=== PATIENT | male | born 1980 | race Caucasian/White ===

== ENCOUNTER 2020-01-09 18:23 | Inpatient (IN) ==
--- NOTE | 2020-01-09 19:46 | Emergency Department Note ---
Impression & Plan Dysphagia, Abdominal pain ED Provider Note NAME: WAYNE [id number] ANURADHA AGE: 39 SEX: M : 1980 ARRIVES VIA: Walk-In INFORMANT: Patient, ED PROVIDER(S): Joe Becker MD Chief Complaint: Hematemesis, abdominal pain HPI: Patient does present with the above complaints. The patient reports that he has been incarcerated for approximately 10 days and during this time the patient was admitted to [facility] where the patient did have hematemesis and an associated bowel obstruction. The patient states that he was forced to sign out AMA and was subsequently [facility] currently at [facility] and then was brought back in for his continued symptoms. The patient denies any trauma to the area but does state he has difficulty with secretions and cannot keep anything down. The patient states that he did have an endoscopy completed at the other hospital but was not told of any source of his hematemesis. The patient does not take any blood thinning medications. The patient denies alcohol or tobacco use. Patient states that he was picked up due to not showing up for a court date. ROS: See HPI for pertinent positives and negatives. A total of 10 systems were reviewed and otherwise negative. Past medical history: See below Surgical history: See below Social history: See below Physical Exam: GENERAL: Wearing a mask. NAD, non-toxic. EYE EXAM: Normal conjunctiva. PERRL, no anisocoria and EOM's grossly intact w/o pain. NECK: Supple, no nuchal rigidity, no adenopathy, non-tender. No signs of meningismus. LUNGS: Clear to auscultation. Normal chest wall mechanics. HEART: NSR, no MRG. ABDOMEN: Abdomen soft, mild upper abdominal pain without peritonitis normo- active bowel sounds, no masses, no rebound or guarding. BACK: No CVA TTP. SKIN: No rashes and no bruising. UPPER EXTREMITIES: Upper extremities are grossly normal. LOWER EXTREMITIES: Grossly normal, no edema. NEURO EXAM: A&O x3, cranial nerves II-XII grossly intact, normal speech, moves all 4 extremities on command w/o issue. Differential diagnoses: Diverticulosis, AVM, coagulopathy, colitis, inflammatory bowel disease, malignancy, Fara-Johnson tear, esophagitis, peptic ulcer dise ase, variceal bleed, gastritis, epistaxis, fissure, hemorrhoids, as well as other pathologies. Course: Patient was seen and evaluated the bedside. Full history physical exam was performed. EKG: Sinus bradycardia, rate of 47, normal intervals, normal axis, T wave inversion in V2 and V3 as well as in lead III. Imaging Studies: Radiology results as stated below per my review in the radiologist's interpretation: CT abdomen and pelvis with contrast: Fatty liver pole. No acute intra-abdominal or inflammatory process. No bowel dilatation. Unremarkable appendix. Liquid stool in the rectum. 5 gallstones. No abdominal aortic aneurysm. Chase Hill MD Cardiac monitoring: An order was placed for continuous cardiac monitoring. The monitor shows a rate of 48 with sinus bradycardia rhythm. MDM: Patient was seen due to concern for possible upper GI bleed with hematemesis blood work was obtained along with a CT of the abdomen pelvis. Patient does have a normal white count H&H and platelet count. Kidney function is unremarkable. Patient does have elevated sodium which could be related to some dehydration although the patient's BUN to creatinine is just above 20. AST is borderline elevated with rest of the LFTs fairly unremarkable. Patient CT abdomen pelvis does not show any acute findings no evidence of any bowel obstruction. I did order the patient by mouth medications with the patient refused to take his he has some discomfort. Given this potential inability to swallow and I do not have a prior EGD report did speak the on-call hospitalist Dr. Agustín MD the patient was admitted to the [facility] service. Past Med/Surg History Medical History Bowel obstruction Social History Smoking Status: Never smoker Preferred Language: Khmer Feels Safe at Home: Yes Allergies Allergies Allergy/AdvReac Type Severity Reaction Status Date / Time Penicillins Allergy Unknown unknown Verified 01/09/20 20:49 BEE STINGS Allergy Unknown pt Uncoded 01/09/20 20:49 Home Meds Home Medications Medication Instructions Recorded Confirmed No Known Home Medications 01/09/20 01/09/20 Results & Data (ED) Vital Signs Vital Signs - 24 hr 01/09/20 18:37 01/09/20 20:52 01/09/20 22:14 Temperature 37.3 C Temperature Source Oral Pulse Rate 48 L Pulse Rate [Right Finger] 60 46 L Respiratory Rate 18 20 19 Respiratory Effort / Characteristics Non-Labored Spontaneous Respiratory Depth Normal Respiratory Pattern Regular Blood Pressure 131/73 Blood Pressure [Left Arm] 129/87 136/72 Blood Pressure Mean 92 Blood Pressure Mean [Left Arm] 101 93 Blood Pressure Position Sitting Pulse Oximetry 96 98 97 Oxygen Delivery Method Room Air Sepsis Recent Fever Within 48 Hours No Sepsis New/Unexplained Change in Mental Status N/A Sepsis Action Taken by Nursing No Action Required 01/09/20 23:39 Temperature Temperature Source Pulse Rate 46 L Pulse Rate [Right Finger] Respiratory Rate 19 Respiratory Effort / Characteristics Respiratory Depth Respiratory Pattern Blood Pressure 152/71 H Blood Pressure [Left Arm] Blood Pressure Mean Blood Pressure Mean [Left Arm] Blood Pressure Position Pulse Oximetry 97 Oxygen Delivery Method Room Air Sepsis Recent Fever Within 48 Hours Sepsis New/Unexplained Change in Mental Status Sepsis Action Taken by Intermediate Medications Current Medication List: was personally reviewed by me Laboratory Data Attestation: I reviewed the patient's lab results. Result diagrams: 01/09/20 20:16 01/09/20 20:16 Lab Results 01/09/20 01/09/20 01/09/20 Range/Units 19:54 20:16 20:16 WBC 9.14 (4.8-10.8) K/uL RBC 4.99 (4.7-6.1) M/uL Hgb 15.0 (14.0-18.0) g/dL Hct 43.2 (42-52) % MCV 86.6 (80-100) fL MCH 30.1 (25-34) pg MCHC 34.7 (32-36) g/dL RDW Std Deviation 39.5 (36.4-46.3) fL RDW Coeff of [place] 12.5 (11.5-14.5) % Plt Count 235 (130-400) K/uL MPV 11.3 H (7.4-10.4) fL Immature Gran % (Auto) 0.3 % Neut % (Auto) 64.4 % Lymph % (Auto) 27.6 % [place] % (Auto) 7.3 % Eos % (Auto) 0.2 % Baso % (Auto) 0.2 % Neut # (Auto) 5.88 (1.4-6.5) K/uL Lymph # (Auto) 2.52 (1.2-3.4) K/uL [place] # (Auto) 0.67 H (0.11-0.59) K/uL Eos # (Auto) 0.02 (0-0.5) K/uL Baso # (Auto) 0.02 (0-0.2) K/uL Immature Gran # (Auto) 0.03 H (0.00-0.02) K/uL PT 12.6 H (9.0-12.0) Seconds INR 1.2 H (0.9-1.1) APTT 25.3 (21.0-31.0) Seconds PTT Ratio 0.9 Sodium (136-145) mmol/L Potassium (3.5-5.1) mmol/L Chloride (98-107) mmol/L Carbon Dioxide (21-32) mmol/L Anion Gap (3-11) BUN (7-18) mg/dl Creatinine (0.6-1.4) mg/dl Est Cr Clr Drug Dosing Est GFR ( Amer) Est GFR (Non-Af Amer) BUN/Creatinine Ratio (10-20) Glucose (70-99) mg/dl Calcium (8.5-10.1) mg/dl Total Bilirubin (0.2-1) mg/dl AST (15-37) U/L ALT (12-78) U/L Alkaline Phosphatase (45-117) U/L Total Protein (6.4-8.2) gm/dl Albumin (3.4-5.0) gm/dl Globulin (2.5-4.0) gm/dl Albumin/Globulin Ratio (0.9-2) Blood Type B Negative Antibody Screen NEGATIVE 01/09/20 Range/Units 20:16 WBC (4.8-10.8) K/uL RBC (4.7-6.1) M/uL Hgb (14.0-18.0) g/dL Hct (42-52) % MCV (80-100) fL MCH (25-34) pg MCHC (32-36) g/dL RDW Std Deviation (36.4-46.3) fL RDW Coeff of [place] (11.5-14.5) % Plt Count (130-400) K/uL MPV (7.4-10.4) fL Immature Gran % (Auto) % Neut % (Auto) % Lymph % (Auto) % [place] % (Auto) % Eos % (Auto) % Baso % (Auto) % Neut # (Auto) (1.4-6.5) K/uL Lymph # (Auto) (1.2-3.4) K/uL [place] # (Auto) (0.11-0.59) K/uL Eos # (Auto) (0-0.5) K/uL Baso # (Auto) (0-0.2) K/uL Immature Gran # (Auto) (0.00-0.02) K/uL PT (9.0-12.0) Seconds INR (0.9-1.1) APTT (21.0-31.0) Seconds PTT Ratio Sodium 148 H (136-145) mmol/L Potassium 3.5 (3.5-5.1) mmol/L Chloride 116 H (98-107) mmol/L Carbon Dioxide 23 (21-32) mmol/L Anion Gap 9.0 (3-11) BUN 16 (7-18) mg/dl Creatinine 0.80 (0.6-1.4) mg/dl Est Cr Clr Drug Dosing Not Reportable Est GFR ( Amer) 128.6 Est GFR (Non-Af Amer) 111.0 BUN/Creatinine Ratio 20.1 H (10-20) Glucose 89 (70-99) mg/dl Calcium 9.2 (8.5-10.1) mg/dl Total Bilirubin 0.6 (0.2-1) mg/dl AST 44 H (15-37) U/L ALT 58 (12-78) U/L Alkaline Phosphatase 63 (45-117) U/L Total Protein 7.5 (6.4-8.2) gm/dl Albumin 3.3 L (3.4-5.0) gm/dl Globulin 4.2 H (2.5-4.0) gm/dl Albumin/Globulin Ratio 0.8 L (0.9-2) Blood Type Antibody Screen Administered Medications Discontinued Medications Ioversol (Ioversol 100ml) 90 ml IV ONCE ONE Stop: 01/09/20 21:12 Last Admin: 01/09/20 21:12 Dose: 90 ml Documented by: [id number] Ondansetron HCl (Ondansetron 4 Mg Od Tab) 4 mg PO NOW STA Stop: 01/09/20 21:36 Last Admin: 01/09/20 21:43 Dose: Not Given Documented by: [id number] Oxycodone HCl (Oxycodone Hcl Ir 5 Mg Tab (Immediate Release)) 5 mg PO NOW STA Stop: 01/09/20 21:36 Last Admin: 01/09/20 21:43 Dose: Not Given Documented by: [id number] Discharge Plan Visit Data Chief Complaint: GI Bleed Stated Complaint: SOB, COUGHING UP BLOOD, ABD PAIN, THROAT PAIN ED Provider: Joe Becker Discharge Problem: Dysphagia, Abdominal pain Discharge Instructions Interventions: ED Discharge Assessment Last Done: 01/09/20 23:39 Forms Stand Alone Forms: [employer] Prescriptions Prescriptions: No Action No Known Home Medications RF: 0 Referrals Referrals: Spike Wilder MD [Primary Care Provider] - Discharge Problem: Dysphagia Qualifiers: Dysphagia type: unspecified Qualified Code(s): R13.10 - Dysphagia, unspecified Abdominal pain Qualifiers: Abdominal location: generalized Qualified Code(s): R10.84 - Generalized abdominal pain
[2020-01-09 20:33] LABS: Basophils # (auto) 0.02 K/uL (0-0.2); Basophils % (auto) 0.2 %; Eosinophils # (auto) 0.02 K/uL (0-0.5); Eosinophils % (auto) 0.2 %; Hematocrit (blood only) 43.2 % (42-52); Immature Granulocytes # (auto) 0.03 K/uL (0.00-0.02); Immature Granulocytes % (auto) 0.3 %; Lymphocytes # (auto) 2.52 K/uL (1.2-3.4); Lymphocytes % (auto) 27.6 %; Mean Corpuscular Hemoglobin 30.1 pg (25-34); Mean Corpuscular Hgb Conc 34.7 g/dL (32-36); Mean Corpuscular Volume 86.6 fL (80-100); Mean Platelet Volume 11.3 fL (7.4-10.4); Monocytes # (auto) 0.67 K/uL (0.11-0.59); Monocytes % (auto) 7.3 %; Neutrophils # (auto) 5.88 K/uL (1.4-6.5); Neutrophils % (auto) 64.4 %; Platelet Count 235 K/uL (130-400); RDW Coefficient of Variation 12.5 % (11.5-14.5); RDW Standard Deviation 39.5 fL (36.4-46.3); Red Blood Count 4.99 M/uL (4.7-6.1); White Blood Count 9.14 K/uL (4.8-10.8)
[2020-01-09 20:51] LABS: INR 1.2 (0.9-1.1); Partial Thromboplastin Ratio 0.9; Partial Thromboplastin Time 25.3 Seconds (21.0-31.0); Prothrombin Time 12.6 Seconds (9.0-12.0)
[2020-01-09 20:54] LABS: Alanine Aminotransferase 58 U/L (12-78); Albumin Level 3.3 gm/dl (3.4-5.0); Aspartate Aminotransferase 44 U/L (15-37); BUN Creatinine Ratio 20.1 (10-20); Blood Urea Nitrogen 16 mg/dl (7-18); Calcium 9.2 mg/dl (8.5-10.1); Carbon Dioxide 23 mmol/L (21-32); Chloride 116 mmol/L (98-107); Est GFR (African American) 128.6; Glucose 89 mg/dl (70-99); Potassium 3.5 mmol/L (3.5-5.1); Sodium 148 mmol/L (136-145)
[2020-01-09 20:57] LABS: Albumin Globulin Ratio 0.8 (0.9-2); Alkaline Phosphatase 63 U/L (45-117); Bilirubin,Total 0.6 mg/dl (0.2-1); Globulin 4.2 gm/dl (2.5-4.0); Total Protein 7.5 gm/dl (6.4-8.2)
[2020-01-09] MEDS ORDERED: IOVERSOL 100ml IV ONE (21:11)
[2020-01-09] MEDS ORDERED: ONDANSETRON 4 MG OD TAB PO STA (21:35)
[2020-01-09] MEDS ORDERED: oxyCODONE HCL IR 5 MG TAB (IMMEDIATE RELEASE) PO STA (21:35)
[2020-01-09] MEDS ORDERED: ACETAMINOPHEN 325 MG TAB PO PRN (23:59)
[2020-01-09] MEDS ORDERED: NITROGLYCERIN SL 0.4 MG/TAB TAB SL PRN (23:59)
[2020-01-09] MEDS ORDERED: ONDANSETRON INJ 2 MG/ML 2 ML VIAL IV PRN (23:59)
[2020-01-09] MEDS ORDERED: MoRPHine SULFATE 4 MG/ML 1 ML CARP\\VIAL IV STA (23:59)
--- NOTE | 2020-01-10 00:44 | History and Physical Report ---
DATE OF ADMISSION: 01/09/2020 CHIEF COMPLAINT: Questionable hematemesis and dysphagia. HISTORY OF PRESENT ILLNESS: This is a 39-year-old male with past medical history significant for tobacco use disorder, who comes with hematemesis and dysphagia. The patient is admitted to skilled nursing since 12/31/2019. He says symptoms started around 12/31/2019 or 01/01/2020. He is saying he is not able to eat anything. Whatever he puts in his mouth is coming out, he could not even drink water, he is throwing up, and he says he also had a couple of days of hematemesis on 01/03/2020 and 01/04/2020 and he was taken to the hospital, looks like [facility] where the patient had a bowel obstruction and was s/p scope. The patient says they are waiting for the biopsies. Patient says he was forced to sign out AMA today. Seems he was also transferred to a different [facility] as per the ER and was brought in here for similar symptoms. The patient says he is still the same, that he could not eat anything and has abdominal pain in the epigastric region. He says his throat is sore because of the tubes. No loss of sense of smell or taste. Denies any fever, chills. No headache, no blurred vision, no earache, no runny nose. He has cough since 12/30/2019 or 12/31/2019, bringing up some whitish phlegm. No shortness of breath, no chest pain. He is urinating when he gets fluids and he had a some small amount of diarrhea in the ER today and says stools are black. No swelling in the legs, no rash. ALLERGIES: BEE VENOM, PENICILLINS. PAST MEDICAL HISTORY: As mentioned above. PAST SURGICAL HISTORY: No past surgical history on file. MEDICATIONS: None. FAMILY HISTORY: Significant for father had heart disorder. SOCIAL HISTORY: Smoked half pack a day for 5 years. Snuffs tobacco 1 can a day as per the EPIC. No alcohol use, no drug use as per the EPIC. REVIEW OF SYSTEMS: As per HPI. Rest of the review of systems negative. PHYSICAL EXAMINATION: GENERAL: The patient is of moderate built, not in acute distress. VITAL SIGNS: Temperature 37.3, pulse 46, respiratory rate 19, blood pressure 136/72, oxygen 97% on room air. HEENT: Head atraumatic. Pupils are equal, round, and reactive to light. Oral mucosa moist. NECK: No JVD, no neck masses seen. CARDIOVASCULAR: S1, S2 heard, regular rate and rhythm, no murmur, no gallop. RESPIRATORY SYSTEM: Normal AP diameter. No accessory muscle use. No wheezing, no crackles. ABDOMEN: Soft, bowel sounds present. Mild epigastric tenderness present, no guarding, no rigidity. No distention. CENTRAL NERVOUS SYSTEM: Cranial nerves II-XII grossly intact, nonfocal. EXTREMITIES: No edema, no erythema. LABORATORY DATA: WBC 9.1, hemoglobin 15, hematocrit 43.2, platelets 235. PT 12.7, INR 1.2, APTT 25.3. Sodium 148, potassium 3.5, chloride 116, CO2 of 23, BUN 16, creatinine 0.8, serum glucose 89, calcium 9.2, total bilirubin 0.6, AST 44, ALT 58, alkaline phosphatase 63. IMAGING DATA: CT of abdomen and pelvis preliminary report shows fatty liver, no acute intra-abdominal inflammatory process. No bowel dilatation. Unremarkable appendix. Liquid stool in the rectum. No calcified gallstones. No abdominal aortic aneurysm. EKG: Sinus bradycardia at the rate of 47, incomplete right bundle branch block seen. ASSESSMENT AND PLAN: This is a 39-year-old male who presents with ongoing dysphagia to liquids and solids and also hematemesis. 1. Ongoing dysphagia to liquids and solids since 12/31/2019 or 01/01/2020 and also had an episode of hematemesis for couple of days . The patient was at an outside hospital where EGD was done. He says the biopsies are pending, but still he says he was forced to sign out AMA and still has ongoing symptoms. Labs were fine. His CAT scan of the abdomen and pelvis was unremarkable on the preliminary report. We will follow the final report. We will place him on IV Protonix b.i.d., IV fluids. Consult GI in a.m. for further recommendations. 2. Deep venous thrombosis prophylaxis, sequential compression devices. DISPOSITION: Admit to med/tele. Expect to discharge back to skilled nursing when stable. [facility]
[2020-01-10] MEDS: D5W AND 1/2NSS + 20MEQ KCL 20 MEQ/1,000 ML BAG IV SCH ×3 (00:46→16:10)
--- NOTE | 2020-01-10 07:18 | CT Scan Report ---
CT OF THE ABDOMEN AND PELVIS WITH CONTRAST CLINICAL HISTORY: hematemesis, h/o bowel obstruction COMPARISON STUDY: None. TECHNIQUE: Following IV administration of 90 mL of Optiray-320, axial images of the abdomen and pelvi s were obtained from the lung bases to the proximal femurs. Images were reviewed in the axial, sagitt al, and coronal planes. IV contrast was administered without complication. Automated exposure contro l was utilized for the study. A dose lowering technique was utilized adhering to the principles of A AMINTA. CT DOSE: 627.12 mGy.cm FINDINGS: Lung bases are unremarkable. No pneumatosis, free air or portal venous gas is present. Ther e is probable fatty infiltration of the liver or there is a possible small hiatal hernia. The spleen, adrenal glands, kidneys and pancreas are normal. There is no biliary or pancreatic ductal dilatation . No hydronephrosis. No ureteral calculi are present. There is no evidence for a bowel obstruction. T here is no lymphadenopathy. Major vasculature is patent. No biliary or pancreatic ductal dilatation i s noted. There is no peripancreatic or pericholecystic infiltration. The appendix is normal. IMPRESSION: 1. No acute process within the abdomen or pelvis. No bowel obstruction. Normal appendix. 2. Fatty infiltration of the liver. ACT 112: Negative or not required by law. Electronically signed by: Keyur Cobian M.D. 01/10/2020 7:17 AM
[2020-01-10] MEDS: PANTOprazole 40 MG in SYRINGE 0 ML IV SCH ×2 (07:38→20:12)
[2020-01-10] MEDS: ACETAMINOPHEN 1,000 MG/100 ML VIAL IV PRN ×2 (08:08→18:58)
--- NOTE | 2020-01-10 08:35 | Gastrointestinal Consultation ---
Date of Consultation January 10, 2020 Assessment & Plan (1) Dysphagia: (2) Abdominal pain: 39 year old male with history of tobacco use who presents with report of abdominal pain, nausea/vomiting w/ resultant hematemesis and solids/liquid dysphagia. He was in [facility] where he was admitted w/ a self reported bowel obstruction and underwent EGD for hematemesis. He is unsure what these reports showed. Came to [place] ED today w/ report of ongoing inability to tolerate PO intake, solids/liquids dysphagia and hematemesis that last occurred 24 hours ago. He is awake, alert and oriented, stable vital signs w/ normal HGB w/o BUN elevation. - Records were requested - Can keep NPO - Stat COVID in event EGD is needed - IV PPI BID - Antiemetics PRN - Analgesia PRN - Would recommend to avoid NSAIDs and AC at this time - Trend HGB - Monitor and document all GI output - Transfuse PRN per primary service Will follow and await records. Thank you for allowing us to participate in the care of this patient. Please call with any acute changes, questions or concerns. Please see addendum below with additional recommendation from my supervising physician. Supervising Physician Co-Signing Physician Notes I have seen and examined the patient and discussed the management with MILLICENT Lacy. GI consult for ? hematemesis, abd pain 39 yo male prisoner, smoker, denies recent nsaid use, admitted through the ER for reported hematemesis abd pain, has constipation. Recent workup thru [place] including egd with no results (attempts to get results faxed stat to us early this morning but results yet to arrive). No further hematemesis or vomiting since admission. Stable hgb, no bun rise. Not on blood thinners. Covid test pending Will likely repeat EGD pending results of covid today or tomorrow. Would keep NPO for now. Would hydrate with IV LR. History of Present Illness Reason for Consultation: hematemesis, dysphagia Requesting Physician: Zuly Attending Physician: Enmanuel Caruso MD History of Present Illness 39 year old male with history of tobacco use disorder, recently incarcerated, who presents through the ED for evaluation of dysphagia, hematemesis. Pt was seen and evaluated, chart reviewed. Notes he developed severe generalized abdominal pain about 10 days ago. This was associated with severe nausea/vomiting. Emesis to start was bilious and clear. Suggests after 1-2 episodes this became adelso blood. Notes that he vomited for about 48 hours- this was just adelso blood. No coffee ground appearing emesis. Suggests after emesis, abd pain resolved. He had tried PO intake at this time however, and notes that all PO intake gets stuck. Feels sticking sensation in his esophagus. He went to [place] ED. Records are not available but he tells me imaging at that time was concerning for obstruction and an NG tube was placed. He then tells me because of his hematemesis he underwent EGD. He is not sure what the EGD showed. He was apparently discharged after EGD although he reports he was never able to tolerate PO intake. He presents to [place] now w/ ongoing symptoms. He tells me no vomiting x 24 hours. Last episodes of hematemsis was over 24 hours ago. No BM in about 3/4 days while he was admitted at [facility]. No weight loss, fever, chills, CP, SOB. Denies any NSAIDs Denies ETOH Ongoing tobacco use Denies IV/IN drug use Denies any foreign body ingestion CTAP 01/10/20: No acute process within the abdomen or pelvis. No bowel obstruction. Normal appendix. Fatty infiltration of the liver CTAP 01/06/20: waiting report EGD 01/06/20: waiting report Family history of GI malignancy: none Family history of IBD: grandmother w/ crohns Allergies Allergy/AdvReac Type Severity Reaction Status Date / Time Penicillins Allergy Unknown unknown Verified 01/09/20 20:49 BEE STINGS Allergy Unknown pt Uncoded 01/09/20 20:49 Home Medications Home Medications Medication Instructions Recorded Confirmed Type No Known Home Medications 01/09/20 01/09/20 History Patient History Medical History Bowel obstruction Social History Smoking Status: Former smoker Second Hand Exposure: No; Do You Dip or Chew Tobacco: No; Tobacco Cessation Education Requested by Patient: No Hx Alcohol Use: No Hx Substance Use: No Preferred Language: Belarusian Communication Ability: Effective Chief Wellness Officer Required: No Beliefs That Will Affect Care: None Current Living Situation Comment: Pt is currently incarcerate. Other Information That Helps Us Care for You: No Feels Safe at Home: Yes Safety Concerns: Feels Safe At This Time Assistive Devices: None Review of Systems Constitutional: no fever, no chills and no fatigue Respiratory: no cough, no dyspnea and no wheezing Cardiovascular: no chest pain, no dyspnea on exertion and no palpitations Gastrointestinal: + abdominal pain, + nausea, + vomiting, + hematemesis and + dysphagia Physical Exam Constitutional: well developed and well nourished; no acute distress and not ill appearing Neck: trachea midline Respiratory: normal respiratory effort Cardiovascular: Rate/Rhythm: regular rate Gastrointestinal (Abdomen): Inspection/Auscultation: normal bowel sounds Percussion/Palpation: + abdomen tender and abdomen soft; no guarding and abdomen not rigid Skin: no rashes, warm and dry Results & Data ([facility]) Vital Signs (Past 12 Hours) Vital Signs Temp Pulse Pulse Resp BP BP Pulse Ox 01/10/20 07:29 36.8 C 45 L 18 131/75 96 01/10/20 04:00 36.9 C 52 L 18 130/66 96 01/10/20 00:11 48 L 01/09/20 23:48 37.3 C 50 L 18 136/82 98 01/09/20 23:39 46 L 19 152/71 H 97 01/09/20 22:14 46 L 19 136/72 97 01/09/20 20:52 60 20 129/87 98 Laboratory Results 01/09/20 01/09/20 01/09/20 Range/Units 20:16 20:16 20:16 WBC 9.14 (4.8-10.8) K/uL RBC 4.99 (4.7-6.1) M/uL Hgb 15.0 (14.0-18.0) g/dL Hct 43.2 (42-52) % MCV 86.6 (80-100) fL MCH 30.1 (25-34) pg MCHC 34.7 (32-36) g/dL RDW Std Deviation 39.5 (36.4-46.3) fL RDW Coeff of [place] 12.5 (11.5-14.5) % Plt Count 235 (130-400) K/uL MPV 11.3 H (7.4-10.4) fL Immature Gran % (Auto) 0.3 % Neut % (Auto) 64.4 % Lymph % (Auto) 27.6 % [place] % (Auto) 7.3 % Eos % (Auto) 0.2 % Baso % (Auto) 0.2 % Neut # (Auto) 5.88 (1.4-6.5) K/uL Lymph # (Auto) 2.52 (1.2-3.4) K/uL [place] # (Auto) 0.67 H (0.11-0.59) K/uL Eos # (Auto) 0.02 (0-0.5) K/uL Baso # (Auto) 0.02 (0-0.2) K/uL Immature Gran # (Auto) 0.03 H (0.00-0.02) K/uL PT 12.6 H (9.0-12.0) Seconds INR 1.2 H (0.9-1.1) APTT 25.3 (21.0-31.0) Seconds PTT Ratio 0.9 Sodium 148 H (136-145) mmol/L Potassium 3.5 (3.5-5.1) mmol/L Chloride 116 H (98-107) mmol/L Carbon Dioxide 23 (21-32) mmol/L Anion Gap 9.0 (3-11) BUN 16 (7-18) mg/dl Creatinine 0.80 (0.6-1.4) mg/dl Est Cr Clr Drug Dosing Not Reportable Est GFR ( Amer) 128.6 Est GFR (Non-Af Amer) 111.0 BUN/Creatinine Ratio 20.1 H (10-20) Glucose 89 (70-99) mg/dl Calcium 9.2 (8.5-10.1) mg/dl Total Bilirubin 0.6 (0.2-1) mg/dl AST 44 H (15-37) U/L ALT 58 (12-78) U/L Alkaline Phosphatase 63 (45-117) U/L Total Protein 7.5 (6.4-8.2) gm/dl Albumin 3.3 L (3.4-5.0) gm/dl Globulin 4.2 H (2.5-4.0) gm/dl Albumin/Globulin Ratio 0.8 L (0.9-2) Blood Type Antibody Screen 01/09/20 Range/Units 19:54 WBC (4.8-10.8) K/uL RBC (4.7-6.1) M/uL Hgb (14.0-18.0) g/dL Hct (42-52) % MCV (80-100) fL MCH (25-34) pg MCHC (32-36) g/dL RDW Std Deviation (36.4-46.3) fL RDW Coeff of [place] (11.5-14.5) % Plt Count (130-400) K/uL MPV (7.4-10.4) fL Immature Gran % (Auto) % Neut % (Auto) % Lymph % (Auto) % [place] % (Auto) % Eos % (Auto) % Baso % (Auto) % Neut # (Auto) (1.4-6.5) K/uL Lymph # (Auto) (1.2-3.4) K/uL [place] # (Auto) (0.11-0.59) K/uL Eos # (Auto) (0-0.5) K/uL Baso # (Auto) (0-0.2) K/uL Immature Gran # (Auto) (0.00-0.02) K/uL PT (9.0-12.0) Seconds INR (0.9-1.1) APTT (21.0-31.0) Seconds PTT Ratio Sodium (136-145) mmol/L Potassium (3.5-5.1) mmol/L Chloride (98-107) mmol/L Carbon Dioxide (21-32) mmol/L Anion Gap (3-11) BUN (7-18) mg/dl Creatinine (0.6-1.4) mg/dl Est Cr Clr Drug Dosing Est GFR ( Amer) Est GFR (Non-Af Amer) BUN/Creatinine Ratio (10-20) Glucose (70-99) mg/dl Calcium (8.5-10.1) mg/dl Total Bilirubin (0.2-1) mg/dl AST (15-37) U/L ALT (12-78) U/L Alkaline Phosphatase (45-117) U/L Total Protein (6.4-8.2) gm/dl Albumin (3.4-5.0) gm/dl Globulin (2.5-4.0) gm/dl Albumin/Globulin Ratio (0.9-2) Blood Type B Negative Antibody Screen NEGATIVE (1) Dysphagia Dysphagia type: unspecified Qualified Code(s): R13.10 - Dysphagia, unspecified (2) Abdominal pain Abdominal location: generalized Qualified Code(s): R10.84 - Generalized abdominal pain
--- NOTE | 2020-01-10 10:49 | XRay Report ---
XR chest 1V portable HISTORY: 39 years-old Male cough acute cough COMPARISON: CT abdomen and pelvis 01/09/2020 TECHNIQUE: Portable AP view of the chest FINDINGS: Cardiomediastinal and hilar silhouettes are within normal limits. No pneumothorax, pleural effusion, airspace consolidation or overt pulmonary edema. Bones of the chest appear grossly intact. IMPRESSION: No acute process. ACT 112: Negative or not required by law. The above report was generated using voice recognition software. It may contain grammatical, syntax o r spelling errors. Electronically signed by: Manuel Wooten M.D. 01/10/2020 10:48 AM
--- NOTE | 2020-01-10 11:15 | Anesthesiology Consultation ---
Date of Service January 10, 2020 Assessment & Plan Chart Review Chart Review: Acceptable Risk for Surgery and Patient NOT seen in Pre Admission Testing Consults Requested none History Surgery Operation Date: 01/10/20 17:00 Proposed Procedures p Esophagogastroduodenoscopy Dr. Winter Max M.D. Height/Weight Height: 5 ft 9 in Weight: 93 kg Allergies Allergy/AdvReac Type Severity Reaction Status Date / Time Penicillins Allergy Unknown unknown Verified 01/09/20 20:49 BEE STINGS Allergy Unknown pt Uncoded 01/09/20 20:49 Medications Home Medications Medication Instructions Recorded Confirmed Last Taken No Known Home Medications 01/09/20 01/09/20 Unknown Active Medications Generic Name Dose Route Start Last Admin Trade Name Freq PRN Reason Stop Dose Admin Potassium Chloride/Dextrose/Sod Cl 20 meq in 1,000 mls @ 125 mls/hr 01/09/20 23:59 01/10/20 07:39 D5w And 1/2nss + 20meq Kcl IV 02/08/20 23:58 125 mls/hr .Q8H ALISSON Administration Pantoprazole Sodium 40 mg/ 10 mls @ 5 mls/min 01/10/20 09:00 01/10/20 07:38 Syringe IV 02/09/20 08:59 5 mls/min BID ALISSON Administration Acetaminophen 1,000 mg in 100 mls @ 400 mls/hr 01/10/20 07:45 01/10/20 08:29 Ofirmev IV 01/13/20 07:44 Infused Q8H PRN Infusion pain Past Medical History Medical History Bowel obstruction Exercise / Class Metabolic Activity II 4-5 Yardwork/Stairs/Walk up hill Social History Smoking Status: Former smoker tobacco type: cigarettes Do You Dip or Chew Tobacco: No Hx Alcohol Use: No Hx Substance Use: No Physical Exam Vital Signs Last Vital Signs Temp 37.2 C 01/10/20 11:29 Pulse 48 L 01/10/20 11:29 Resp 18 01/10/20 11:29 BP 135/72 01/10/20 11:29 Pulse Ox 97 01/10/20 11:29 Testing Laboratory Results 01/09/20 20:16 01/09/20 20:16 PT 12.6 Seconds (9.0-12.0) H 01/09/20 20:16 INR 1.2 (0.9-1.1) H 01/09/20 20:16 APTT 25.3 Seconds (21.0-31.0) 01/09/20 20:16 Blood Type B Negative 01/09/20 19:54 Antibody Screen NEGATIVE 01/09/20 19:54 Electrocardiogram Date: 01/10/20 Findings: + SB @ (47) Sinus bradycardia Incomplete right bundle branch block T wave abnormality, consider anterior ischemia Abnormal ECG No previous ECGs available Chest X-Ray Date: 01/09/20 XR chest 1V portable HISTORY: 39 years-old Male cough acute cough COMPARISON: CT abdomen and pelvis 01/09/2020 TECHNIQUE: Portable AP view of the chest FINDINGS: Cardiomediastinal and hilar silhouettes are within normal limits. No pneumothorax, pleural effusion, airspace consolidation or overt pulmonary edema. Bones of the chest appear grossly intact. IMPRESSION: No acute process. Other Testing 01/09/2020: CT OF THE ABDOMEN AND PELVIS WITH CONTRAST CLINICAL HISTORY: hematemesis, h/o bowel obstruction COMPARISON STUDY: None. TECHNIQUE: Following IV administration of 90 mL of Optiray-320, axial images of the abdomen and pelvis were obtained from the lung bases to the proximal femurs. Images were reviewed in the axial, sagittal, and coronal planes. IV contrast was administered without complication. Automated exposure control was utilized for the study. A dose lowering technique was utilized adhering to the principles of ALARA. CT DOSE: 627.12 mGy.cm FINDINGS: Lung bases are unremarkable. No pneumatosis, free air or portal venous gas is present. There is probable fatty infiltration of the liver or there is a possible small hiatal hernia. The spleen, adrenal glands, kidneys and pancreas are normal. There is no biliary or pancreatic ductal dilatation. No hydronephrosis. No ureteral calculi are present. There is no evidence for a bowel obstruction. There is no lymphadenopathy. Major vasculature is patent. No biliary or pancreatic ductal dilatation is noted. There is no peripancreatic or pericholecystic infiltration. The appendix is normal. IMPRESSION: 1. No acute process within the abdomen or pelvis. No bowel obstruction. Normal appendix. 2. Fatty infiltration of the liver.
[2020-01-10] MEDS ORDERED: LIDOCAINE HCL 2% 2 ML VIAL/AMP(20MG/ML) INFIL ONE ×2 (11:22→11:58)
[2020-01-10] MEDS ORDERED: MIDAZOLAM HCL 1 MG/ML 2ML VIAL ONE (11:22)
[2020-01-10] MEDS ORDERED: PROPOFOL IV EMULSION 10 MG/ML 20 ML VIAL IV ONE (11:22)
[2020-01-10] MEDS ORDERED: ONDANSETRON INJ 2 MG/ML 2 ML VIAL ONE (11:22)
[2020-01-10] MEDS ORDERED: GLYCOPYRROLATE 0.2 MG/ML VIAL ONE (11:33)
--- NOTE | 2020-01-10 11:56 | GI REPORT ---
Patient Name: Hira Olivares Procedure Date: 01/10/2020 11:46 AM Date of : 1980 Admit Type: Inpatient Age: 39 Gender: Male Attending MD: Naz Max M.d. Procedure: Upper GI endoscopy Providers: Naz Max M.d. [facility] Indications: Abdominal pain and odynophagia Medicines: Propofol per Anesthesia, Lidocaine, Robinol Complications: No immediate complications. Estimated Blood Loss: Estimated blood loss: none. Procedure: Pre-Anesthesia Assessment: - Patient identification and proposed procedure were verified prior to the procedure by the physician, the nurse and the anesthesiologist. The procedure was verified in the procedure room. - Prior to the procedure, a History and Physical was performed, and patient medications, allergies and sensitivities were reviewed. The patient's tolerance of previous anesthesia was reviewed. - The risks and benefits of the procedure and the sedation options and risks were discussed with the patient. All questions were answered and informed consent was obtained. After obtaining informed consent, the endoscope was passed under direct vision. Throughout the procedure, the patient's blood pressure, pulse, and oxygen saturations were monitored continuously. The Endoscope was introduced through the mouth, and advanced to the second part of duodenum. The upper GI endoscopy was accomplished without difficulty. The patient tolerated the procedure well. Findings: Moderately severe esophagitis with out bleeding was found with a whitish appearance throughout his esophagus likely from esophageal candidiasis. Localized area of white clean based erosion without bleeding was found in the gastric antrum. Biopsies were taken from the stomach with a cold forceps for Helicobacter pylori testing. The pathology specimen was placed into Bottle B. The entire examined stomach was normal. The duodenal bulb and second portion of the duodenum were normal. Biopsies for histology were taken with a cold forceps for evaluation of celiac disease and histology. The pathology specimen was placed into Bottle A. Verification of patient identification for the specimen was done by the physician and nurse using the patient's name and medical record number. Impression: - Moderately severe candidiasis esophagitis throughout the entire esophagitis.. - Erythematous mucosa in the antrum. Biopsied. - Normal stomach. - Normal duodenal bulb and second portion of the duodenum. Biopsied. Recommendation: - Await pathology results. - Return to the floor when ready.- - Treat for esophageal candidiasis with Diflucan. - Also treat with IV PPI, transition to oral BID ppi for next 6-8 weeks. Naz Max M.D. Naz Max M.d. 01/10/2020 11:56:12 AM This report has been signed electronically. Note Initiated On: 01/10/2020 11:46 AM Number of Addenda: 0 I attest to the content of the Intraoperative Record and orders documented therein, exceptions below {[id number]}
--- NOTE | 2020-01-10 11:56 | Communication Note ---
Date of Service: January 10, 2020 S/P EGD suggestive of quincy esophagitis, bx pending. Would continue IV PPI BID. Start Fluconazole x 14 days (400 mg x 1 dose then 200 mg thereafter). Can trial clear liquids. As he tolerates PO please transition from IV PPI to PO PPI BID x 1 month. GI to sign off. Please recall as needed
--- NOTE | 2020-01-10 13:39 | Anesthesiology Progress Note ---
Date of Service January 10, 2020 Anesthesia Post Procedure Vital Signs Vital Signs: Temp Pulse Pulse Resp BP BP Pulse Ox 01/10/20 12:24 92 H 18 151/79 H 95 01/10/20 12:09 95 H 18 147/94 H 98 01/10/20 11:54 87 18 96/58 L 97 01/10/20 11:29 37.2 C 48 L 18 135/72 97 01/10/20 11:27 37.0 C 45 L 18 124/76 96 01/10/20 07:29 36.8 C 45 L 18 131/75 96 01/10/20 04:00 36.9 C 52 L 18 130/66 96 01/10/20 00:11 48 L 01/09/20 23:48 37.3 C 50 L 18 136/82 98 01/09/20 23:39 46 L 19 152/71 H 97 01/09/20 22:14 46 L 19 136/72 97 01/09/20 20:52 60 20 129/87 98 01/09/20 18:37 37.3 C 48 L 18 131/73 96 Pain Intensity Abdomen: Pain Intensity: 0 Transfer of Care Handoff Completed per policy Notes Mental Status: alert / awake / arousable and participated in evaluation Patient Amnestic to Procedure: Yes Nausea / Vomiting: adequately controlled Pain: adequately controlled Airway Patency, RR, SpO2: stable & adequate BP & HR: stable & adequate Hydration State: stable & adequate Anesthetic Complications: no major complications apparent and Pt Satisfied with anesthetic care
[2020-01-10] MEDS ORDERED: LORazepam 0.5 MG/1 ML VIAL IV PRN (19:34)
[2020-01-10] MEDS: MoRPHine SULFATE 2 MG/ML CARP IV PRN (20:11)
[2020-01-10] MEDS: FLUCONAZOLE 200 MG/100 ML BAG IV SCH (20:20)
--- NOTE | 2020-01-10 22:28 | Hospitalist Progress Note ---
Date of Service January 10, 2020 Assessment & Plan (1) Abdominal pain: Presented with abdominal pain, nausea, vomiting (reported hematemesis), dysphagia. LFT's essentially normal. No acute findings on CT of abdomen & pelvis. Receiving IV pantoprazole. GI consulted. (2) Dysphagia: As noted above. (3) DVT prophylaxis: SCD's ordered. (4) Discharge planning issues: Anticipated return to [facility] under care of their medical team. Admission and Anticipated Discharge Date Admission Date: January 09, 2020 Subjective Recheck for GI symptoms. Patient seen in their room around 1020. Persistent nausea. No emesis today. + epigastric pain. Congested cough. No fever. Physical Exam Constitutional: no acute distress Eyes: + anicteric sclerae Respiratory: no respiratory distress Auscultation: lungs clear to auscultation bilaterally Cardiovascular: Rate/Rhythm: regular rate and regular rhythm Vessels: no JVD Extremities: no calf tenderness and no edema Gastrointestinal (Abdomen): normal bowel sounds, soft, nontender, no hepatosplenomegaly Skin: no rashes, warm and dry Psychiatric: Orientation: alert and oriented x 3 Results & Data Results & Data ([facility]) Vital Signs (Past 12 Hours) Vital Signs Temp Pulse Pulse Resp BP Pulse Ox 01/10/20 19:50 37.4 C 75 18 123/67 97 01/10/20 15:41 183/101 H 01/10/20 15:00 37.2 C 76 18 178/102 H 95 01/10/20 13:52 59 L 01/10/20 12:24 92 H 18 151/79 H 95 01/10/20 12:09 95 H 18 147/94 H 98 01/10/20 11:54 87 18 96/58 L 97 01/10/20 11:29 37.2 C 48 L 18 135/72 97 01/10/20 11:27 37.0 C 45 L 18 124/76 96 Laboratory Results Laboratory Results - last 24 hr 01/10/20 01/10/20 10:40 10:40 COVID-19 Eval Order Covid19 IDNow [facility] SARS-CoV-2, RNA, NAAT NEGATIVE (1) Dysphagia Dysphagia type: unspecified Qualified Code(s): R13.10 - Dysphagia, unspecified (2) Abdominal pain Abdominal location: generalized Qualified Code(s): R10.84 - Generalized abdominal pain
--- NOTE | 2020-01-10 23:34 | Electrocardiogram Report ---
Test Reason : Blood Pressure : / mmHG Vent. Rate : 047 BPM Atrial Rate : 047 BPM P-R Int : 136 ms QRS Dur : 110 ms QT Int : 450 ms P-R-T Axes : 025 014 012 degrees QTc Int : 398 ms Sinus bradycardia Incomplete right bundle branch block T wave abnormality, consider anterior ischemia Abnormal ECG No previous ECGs available Confirmed by Mango Ventura ([id number]) on 01/10/2020 11:34:16 PM Referred By: [facility] Confirmed By:Mango Ventura
[2020-01-11] MEDS: D5W AND 1/2NSS + 20MEQ KCL 20 MEQ/1,000 ML BAG IV SCH ×4 (01:29→23:51)
[2020-01-11] MEDS: MoRPHine SULFATE 2 MG/ML CARP IV PRN ×6 (02:36→23:50)
[2020-01-11] MEDS: FLUCONAZOLE 200 MG/100 ML BAG IV SCH ×2 (07:48→21:12)
[2020-01-11] MEDS: PANTOprazole 40 MG in SYRINGE 0 ML IV SCH ×2 (07:48→21:10)
[2020-01-11 07:49] LABS: Hematocrit (blood only) 43.7 % (42-52); Hemoglobin 15.5 g/dL (14.0-18.0); Mean Corpuscular Hemoglobin 29.8 pg (25-34); Mean Corpuscular Hgb Conc 35.5 g/dL (32-36); Mean Platelet Volume 11.2 fL (7.4-10.4); Platelet Count 236 K/uL (130-400); RDW Coefficient of Variation 12.3 % (11.5-14.5); RDW Standard Deviation 37.7 fL (36.4-46.3)
[2020-01-11 08:15] LABS: Albumin Globulin Ratio 0.8 (0.9-2); Albumin Level 3.1 gm/dl (3.4-5.0); BUN Creatinine Ratio 9.7 (10-20); Bilirubin Direct 0.2 mg/dl (0-0.2); Bilirubin,Total 0.6 mg/dl (0.2-1); Calcium 8.8 mg/dl (8.5-10.1); Creatinine Clr Calc Pharmacy 140.1 ml/min; Est GFR (African American) 129.9; Est GFR (Non-African American) 112.1; Globulin 3.9 gm/dl (2.5-4.0); Potassium 3.2 mmol/L (3.5-5.1)
[2020-01-11] MEDS ORDERED: PROMETHAZINE HCL 12.5 MG in SODIUM CHLORIDE 0.9% 50 ML IV STA (21:10)
--- NOTE | 2020-01-11 21:20 | Hospitalist Progress Note ---
Date of Service January 11, 2020 Assessment & Plan (1) Abdominal pain: Presented with abdominal pain, nausea, vomiting (reported hematemesis), dysphagia. LFT's essentially normal. No acute findings on CT of abdomen & pelvis. Started on IV pantoprazole. GI consulted. EGD 01/09 demonstrated severe esophagitis and suspected candidiasis. HIV ordered with patient's verbal consent and was negative. Started on fluconazole. Biopsy results pending. Advance diet as tolerated. (2) Dysphagia: As noted above. (3) DVT prophylaxis: SCD's ordered. (4) Discharge planning issues: Anticipated return to [facility] under care of their medical team. Admission and Anticipated Discharge Date Admission Date: January 09, 2020 Subjective Recheck for GI symptoms. Patient seen in their room around 1350. Feels better than he has in days. Still only able to tolerate sips of water. No further N/V. Pain better, but still severe enough to warrant occasional doses of morphine. Small amount of dark stool. Persistent cough. No fever. Physical Exam Constitutional: no acute distress Eyes: + anicteric sclerae Respiratory: no respiratory distress Auscultation: lungs clear to auscultation bilaterally Cardiovascular: Rate/Rhythm: regular rate and regular rhythm Vessels: no JVD Extremities: no calf tenderness and no edema Gastrointestinal (Abdomen): normal bowel sounds, soft, nontender, no hepatosplenomegaly Skin: no rashes, warm and dry Psychiatric: Orientation: alert and oriented x 3 Results & Data Results & Data ([facility]) Vital Signs (Past 12 Hours) Vital Signs Temp Pulse Pulse Resp BP Pulse Ox 01/11/20 19:51 36.8 C 56 L 20 127/77 97 01/11/20 17:10 51 L 01/11/20 15:47 36.9 C 47 L 18 118/68 96 01/11/20 11:34 37.1 C 48 L 20 131/73 95 Laboratory Results Laboratory Results - last 24 hr 01/11/20 01/11/20 01/11/20 07:06 07:16 07:16 WBC 9.70 RBC 5.20 Hgb 15.5 Hct 43.7 MCV 84.0 MCH 29.8 MCHC 35.5 RDW Std Deviation 37.7 RDW Coeff of [place] 12.3 Plt Count 236 MPV 11.2 H Sodium 143 Potassium 3.2 L Chloride 112 H Carbon Dioxide 24 Anion Gap 7.0 BUN 8 D Creatinine 0.78 Est Cr Clr Drug Dosing 140.1 Est GFR ( Amer) 129.9 Est GFR (Non-Af Amer) 112.1 BUN/Creatinine Ratio 9.7 L Glucose 101 H Calcium 8.8 Total Bilirubin 0.6 Direct Bilirubin 0.2 AST 29 ALT 47 Alkaline Phosphatase 59 Total Protein 7.0 Albumin 3.1 L Globulin 3.9 Albumin/Globulin Ratio 0.8 L Lipase 92 HIV 1&2 Ab/P24 Ag 4thGn Neg (1) Abdominal pain Abdominal location: generalized Qualified Code(s): R10.84 - Generalized abdominal pain (2) Dysphagia Dysphagia type: unspecified Qualified Code(s): R13.10 - Dysphagia, unspecified
[2020-01-12 07:13] LABS: Hematocrit (blood only) 42.6 % (42-52); Hemoglobin 15.5 g/dL (14.0-18.0); Mean Corpuscular Hemoglobin 30.6 pg (25-34); Mean Corpuscular Hgb Conc 36.4 g/dL (32-36); Mean Platelet Volume 11.7 fL (7.4-10.4); Platelet Count 225 K/uL (130-400); RDW Coefficient of Variation 12.4 % (11.5-14.5); RDW Standard Deviation 37.4 fL (36.4-46.3); Red Blood Count 5.07 M/uL (4.7-6.1); White Blood Count 8.58 K/uL (4.8-10.8)
[2020-01-12 07:35] LABS: Calcium 8.9 mg/dl (8.5-10.1); Creatinine Clr Calc Pharmacy 144.2 ml/min; Est GFR (African American) 131.3; Est GFR (Non-African American) 113.3; Potassium 3.2 mmol/L (3.5-5.1)
[2020-01-12] MEDS: MoRPHine SULFATE 2 MG/ML CARP IV PRN ×3 (07:46→19:41)
[2020-01-12] MEDS: FLUCONAZOLE 200 MG/100 ML BAG IV SCH ×2 (07:46→19:42)
[2020-01-12] MEDS: PANTOprazole 40 MG in SYRINGE 0 ML IV SCH ×2 (07:46→21:20)
[2020-01-12] MEDS: D5W AND 1/2NSS + 20MEQ KCL 20 MEQ/1,000 ML BAG IV SCH ×3 (07:46→21:20)
--- NOTE | 2020-01-12 21:44 | Hospitalist Progress Note ---
Date of Service January 12, 2020 Assessment & Plan (1) Abdominal pain: Presented with abdominal pain, nausea, vomiting (reported hematemesis), dysphagia x 2 weeks. LFT's essentially normal. Lipase normal. No acute findings on CT of abdomen & pelvis. Started on IV pantoprazole. GI consulted. EGD 01/09 demonstrated severe esophagitis and suspected candidiasis. HIV ordered with patient's verbal consent and was negative. Started on fluconazole. Symptoms improved. Advance diet as tolerated- try full liquids. (2) Dysphagia: Probably due to esophagitis. Advance diet as tolerate. (3) Hypokalemia: K as low as 3.2. Replace. Follow. (4) DVT prophylaxis: SCD's ordered. (5) Discharge planning issues: Anticipated return to [facility] under care of their medical team. Admission and Anticipated Discharge Date Admission Date: January 09, 2020 Subjective Recheck for GI symptoms. Patient seen in their room around 1340. Feels better than he has in 2 wks. Tolerating clear liquids. No further N/V. Persistent cough. No fever. Physical Exam Constitutional: no acute distress Eyes: + anicteric sclerae Respiratory: no respiratory distress Auscultation: lungs clear to auscultation bilaterally Cardiovascular: Rate/Rhythm: regular rate and regular rhythm Vessels: no JVD Extremities: no calf tenderness and no edema Gastrointestinal (Abdomen): normal bowel sounds, soft, nontender, no hepatosplenomegaly Skin: no rashes, warm and dry Psychiatric: Orientation: alert and oriented x 3 Results & Data Results & Data ([facility]) Vital Signs (Past 12 Hours) Vital Signs Temp Pulse Pulse Resp BP Pulse Ox 01/12/20 19:34 37.3 C 52 L 17 115/72 94 01/12/20 15:36 37.5 C 52 L 18 173/81 H 98 01/12/20 14:53 48 L 01/12/20 11:41 37.1 C 54 L 18 127/81 97 Laboratory Results 01/12/20 06:20 01/12/20 06:20 (1) Abdominal pain Abdominal location: generalized Qualified Code(s): R10.84 - Generalized abdominal pain (2) Dysphagia Dysphagia type: unspecified Qualified Code(s): R13.10 - Dysphagia, unspecified
[2020-01-13] MEDS: D5W AND 1/2NSS + 20MEQ KCL 20 MEQ/1,000 ML BAG IV SCH ×3 (05:30→22:04)
[2020-01-13] MEDS: PANTOprazole 40 MG in SYRINGE 0 ML IV SCH ×2 (08:40→21:38)
[2020-01-13] MEDS: FLUCONAZOLE 200 MG/100 ML BAG IV SCH ×2 (08:40→21:38)
[2020-01-13 08:42] LABS: BUN Creatinine Ratio 7.2 (10-20); Creatinine Clr Calc Pharmacy 130.2 ml/min; Est GFR (African American) 126.7; Est GFR (Non-African American) 109.3; Potassium 3.4 mmol/L (3.5-5.1)
[2020-01-13] MEDS: MoRPHine SULFATE 2 MG/ML CARP IV PRN ×3 (08:45→21:36)
[2020-01-13] MEDS: CHLORASEPTIC 1.4% SOLN 180 ML BTL MT PRN ×2 (16:56→22:03)
[2020-01-13] MEDS: CLOTRIMAZOLE 10 MG TROCHE BUCCAL SCH ×2 (18:33→22:03)
--- NOTE | 2020-01-13 21:10 | Hospitalist Progress Note ---
Date of Service January 13, 2020 Assessment & Plan (1) Abdominal pain: Presented with abdominal pain, nausea, vomiting (reported hematemesis), dysphagia x 2 weeks. LFT's essentially normal. Lipase normal. No acute findings on CT of abdomen & pelvis. Started on IV pantoprazole. GI consulted. EGD 01/09 demonstrated severe esophagitis and suspected candidiasis. Path: reactive gastropathy: negative for intestinal metaplasia, dysplasia, malignancy, H pylori HIV ordered with patient's verbal consent and was negative. Started on fluconazole. Not tolerating full liquids. Persistent dysphagia. Clear liquids. Continue pantoprazole and fluconazole. (2) Dysphagia: Probably due to esophagitis. Advance diet as tolerate. (3) Hypokalemia: K as low as 3.2. Receiving IV replacement. K today = 3.4. Follow. (4) DVT prophylaxis: SCD's ordered. (5) Discharge planning issues: Anticipated return to [facility] under care of their medical team. Admission and Anticipated Discharge Date Admission Date: January 09, 2020 Subjective Recheck for GI symptoms. Patient seen in their room around 1350. Tolerated clear liquids, but not doing well with full liquids. No emesis per se, but spitting out saliva / consumed liquids. Passing flatus and a small amount of stool. Intermittent cough. No fever. 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 Physical Exam Constitutional: no acute distress Eyes: + anicteric sclerae Respiratory: no respiratory distress Auscultation: lungs clear to auscultation bilaterally Cardiovascular: Rate/Rhythm: regular rate and regular rhythm Vessels: no JVD Extremities: no calf tenderness and no edema Gastrointestinal (Abdomen): normal bowel sounds, soft, nontender, no hepatosplenomegaly Skin: no rashes, warm and dry Psychiatric: Orientation: alert and oriented x 3 Results & Data Results & Data ([facility]) Vital Signs (Past 12 Hours) Vital Signs Temp Pulse Pulse Resp BP Pulse Ox 01/13/20 20:50 36.8 C 52 L 16 133/75 95 01/13/20 15:30 37.2 C 55 L 18 126/79 98 01/13/20 14:50 49 L 01/13/20 10:40 41 L Laboratory Results Laboratory Results - last 24 hr 01/13/20 07:41 Sodium 140 Potassium 3.4 L Chloride 111 H Carbon Dioxide 19 L Anion Gap 9.0 BUN 6 L Creatinine 0.83 Est Cr Clr Drug Dosing 130.2 Est GFR ( Amer) 126.7 Est GFR (Non-Af Amer) 109.3 BUN/Creatinine Ratio 7.2 L Glucose 117 H Calcium 9.0 Specimen Hemolysis (1) Abdominal pain Abdominal location: generalized Qualified Code(s): R10.84 - Generalized abdominal pain (2) Dysphagia Dysphagia type: unspecified Qualified Code(s): R13.10 - Dysphagia, unspecified
[2020-01-13] MEDS: guaiFENesin SUGAR FREE 100 MG/5 ML UDC PO PRN (22:03)
[2020-01-14] MEDS: MoRPHine SULFATE 2 MG/ML CARP IV PRN ×4 (04:58→22:38)
[2020-01-14] MEDS: D5W AND 1/2NSS + 20MEQ KCL 20 MEQ/1,000 ML BAG IV SCH ×3 (05:59→22:29)
[2020-01-14] MEDS: CLOTRIMAZOLE 10 MG TROCHE BUCCAL SCH ×5 (05:59→22:30)
[2020-01-14] MEDS: FLUCONAZOLE 200 MG/100 ML BAG IV SCH ×2 (07:57→21:24)
[2020-01-14] MEDS: PANTOprazole 40 MG in SYRINGE 0 ML IV SCH ×2 (07:57→21:23)
[2020-01-14 10:31] LABS: Hematocrit (blood only) 45.6 % (42-52); Hemoglobin 16.6 g/dL (14.0-18.0); Mean Corpuscular Hemoglobin 30.5 pg (25-34); Mean Corpuscular Hgb Conc 36.4 g/dL (32-36); Mean Corpuscular Volume 83.7 fL (80-100); Mean Platelet Volume 11.5 fL (7.4-10.4); Platelet Count 252 K/uL (130-400); RDW Coefficient of Variation 12.6 % (11.5-14.5); RDW Standard Deviation 37.7 fL (36.4-46.3); Red Blood Count 5.45 M/uL (4.7-6.1); White Blood Count 9.06 K/uL (4.8-10.8)
[2020-01-14 11:03] LABS: BUN Creatinine Ratio 5.9 (10-20); Calcium 8.9 mg/dl (8.5-10.1); Creatinine Clr Calc Pharmacy 122.8 ml/min; Est GFR (African American) 123.7; Est GFR (Non-African American) 106.7; Potassium 3.4 mmol/L (3.5-5.1)
[2020-01-14] MEDS: guaiFENesin SUGAR FREE 100 MG/5 ML UDC PO PRN ×2 (16:34→22:38)
--- NOTE | 2020-01-14 20:29 | Hospitalist Progress Note ---
Date of Service January 14, 2020 Assessment & Plan (1) Abdominal pain: Presented with abdominal pain, nausea, vomiting (reported hematemesis), dysphagia x 2 weeks. LFT's essentially normal. Lipase normal. No acute findings on CT of abdomen & pelvis. Started on IV pantoprazole. GI consulted. EGD 01/09 demonstrated severe esophagitis and suspected candidiasis. Path: reactive gastropathy: negative for intestinal metaplasia, dysplasia, malignancy, H pylori HIV ordered with patient's verbal consent and was negative. Started on fluconazole. Not tolerating full liquids. Persistent dysphagia. Continue liquid diet; advance as tolerated. Continue pantoprazole and fluconazole. (2) Dysphagia: Probably due to esophagitis. Advance diet as tolerate. (3) Hypokalemia: K as low as 3.2. Receiving IV replacement. K today = 3.4. Follow. (4) DVT prophylaxis: SCD's ordered. (5) Discharge planning issues: Anticipated return to [facility] under care of their medical team. Admission and Anticipated Discharge Date Admission Date: January 09, 2020 Subjective Recheck for GI symptoms. Patient seen in their room around 1330. Ongoing problems with dysphagia to liquids. Notes substernal discomfort when swallowing cold liquids. No abdominal pain. Passing flatus and a small amount of stool. Intermittent cough. No fever. Sinus bradycardia noted on [employer]. Physical Exam Constitutional: no acute distress Eyes: + anicteric sclerae Respiratory: no respiratory distress Auscultation: lungs clear to auscultation bilaterally Cardiovascular: Rate/Rhythm: regular rate and regular rhythm Vessels: no JVD Extremities: no calf tenderness and no edema Gastrointestinal (Abdomen): normal bowel sounds, soft, nontender, no hepatosplenomegaly Skin: no rashes, warm and dry Psychiatric: Orientation: alert and oriented x 3 Results & Data Results & Data ([facility]) Vital Signs (Past 12 Hours) Vital Signs Temp Pulse Pulse Resp BP Pulse Ox 01/14/20 19:43 36.9 C 59 L 16 134/83 95 01/14/20 16:50 53 L 01/14/20 15:17 37 C 53 L 16 119/78 97 01/14/20 11:27 36.8 C 55 L 18 151/96 H 98 Laboratory Results Laboratory Results - last 24 hr 01/14/20 01/14/20 09:58 09:58 WBC 9.06 RBC 5.45 Hgb 16.6 Hct 45.6 MCV 83.7 MCH 30.5 MCHC 36.4 H RDW Std Deviation 37.7 RDW Coeff of [place] 12.6 Plt Count 252 MPV 11.5 H Sodium 143 Potassium 3.4 L Chloride 113 H Carbon Dioxide 23 Anion Gap 7.0 BUN 5 L Creatinine 0.88 Est Cr Clr Drug Dosing 122.8 Est GFR ( Amer) 123.7 Est GFR (Non-Af Amer) 106.7 BUN/Creatinine Ratio 5.9 L Glucose 105 H Calcium 8.9 (1) Abdominal pain Abdominal location: generalized Qualified Code(s): R10.84 - Generalized abdominal pain (2) Dysphagia Dysphagia type: unspecified Qualified Code(s): R13.10 - Dysphagia, unspecified
[2020-01-15] MEDS: D5W AND 1/2NSS + 20MEQ KCL 20 MEQ/1,000 ML BAG IV SCH ×2 (06:03→18:36)
[2020-01-15] MEDS: MoRPHine SULFATE 2 MG/ML CARP IV PRN ×3 (06:04→18:36)
[2020-01-15] MEDS: CLOTRIMAZOLE 10 MG TROCHE BUCCAL SCH ×5 (06:09→22:28)
--- NOTE | 2020-01-15 08:51 | Gastroenterology Progress Note ---
Date of Service January 15, 2020 Assessment & Plan (1) Dysphagia: (2) Abdominal pain: 39 year old male with history of tobacco use who presents with report of abdominal pain, nausea/vomiting w/ resultant hematemesis and solids/liquid dysphagia. He was in [facility] where he was admitted w/ a self reported bowel obstruction and underwent EGD for hematemesis. He is unsure what these reports showed. Came to [place] ED today w/ report of ongoing inability to tolerate PO intake, solids/liquids dysphagia and hematemesis that last occurred 24 hours ago. S/P repeat EGD last week which was concerning for eso yeast - does not appear biopsies were obtained - Records were requested - Video swallow/barium swallow - Can keep NPO - PO PPI BID - Continue Fluconazole - Antiemetics PRN - Analgesia PRN - Pending results consider repeat EGD w/ biopsies Will follow and await records. Thank you for allowing us to participate in the care of this patient. Please call with any acute changes, questions or concerns. Please see addendum below with additional recommendation from my supervising physician. Admission and Anticipated Discharge Date Admission Date: January 09, 2020 Supervising Physician Co-Signing Physician Notes I saw and evaluated the patient. I did review his records from the [facility], the did perform an upper endoscopy with biopsies without esophageal dilation. They had recommended a esophagram however the patient signed out AMA and was subsequently reincarcerated. He did have an upper endoscopy last week with esophagitis however no dilation was performed. Given the patient's history I wonder if he may have achalasia would suggest further evaluation with esophagram. We could certainly perform a repeat upper endoscopy with empiric dilation to see if his symptoms improve. Recommendations Esophagram Repeat upper endoscopy with likely esophageal dilation Subjective GI asked to re-evaluate. Ongoing issues with difficulty swallowing. Notes any PO intake will have sensation of sticking near sternum. He will either pass this spontaneously, or vomit this up Mucous/yellow emesis. No further black/bloody stools. No abd pain Moving bowels, small volume. Soft to liquid stools. No black or bloody stools but stools have been darker. EGD reviewed - suspected quincy Review of Systems Constitutional: no fever, no chills and no fatigue Respiratory: no cough and no dyspnea Cardiovascular: no chest pain Physical Exam Constitutional: well developed and well nourished; no acute distress Neck: trachea midline Respiratory: normal respiratory effort Gastrointestinal (Abdomen): Percussion/Palpation: abdomen soft; abdomen nontender, no guarding and abdomen not rigid Skin: no rashes, warm and dry Results & Data ([facility]) Vital Signs (Past 12 Hours) Vital Signs Temp Pulse Pulse Resp BP Pulse Ox 01/15/20 08:09 67 01/15/20 07:16 36.6 C 53 L 18 125/77 95 01/15/20 04:00 36.6 C 63 18 105/66 96 01/15/20 00:06 51 L 01/14/20 22:11 37.2 C 55 L 20 124/80 97 (1) Dysphagia Dysphagia type: unspecified Qualified Code(s): R13.10 - Dysphagia, unspecified (2) Abdominal pain Abdominal location: generalized Qualified Code(s): R10.84 - Generalized abdominal pain
[2020-01-15] MEDS: PANTOprazole 40 MG in SYRINGE 0 ML IV SCH ×2 (10:33→20:39)
[2020-01-15] MEDS: FLUCONAZOLE 200 MG/100 ML BAG IV SCH ×2 (10:33→20:40)
--- NOTE | 2020-01-15 11:16 | Fluoroscopy Report ---
FL barium swallow CLINICAL HISTORY: rule out achalasia COMPARISON STUDY: No previous studies for comparison. Fluoroscopy time: 1 minute. Number of fluoroscopic images: 26. FINDINGS: This exam was technically compromised. However, the esophagus is not dilated. No stricture is identified. Patient deferred the barium tablet. There was no evidence for esophageal dysmotility. No reflux was elicited. No hiatal hernia was identified. IMPRESSION: Technically compromised exam but unremarkable barium swallow. No esophageal stricture or esophageal dilatation. ACT 112: Negative or not required by law. Electronically signed by: Keyur Cobian M.D. 01/15/2020 11:14 AM
--- NOTE | 2020-01-15 23:49 | Hospitalist Progress Note ---
Date of Service January 15, 2020 Assessment & Plan (1) Abdominal pain: Presented with abdominal pain, nausea, vomiting (reported hematemesis), dysphagia x 2 weeks. LFT's essentially normal. Lipase normal. No acute findings on CT of abdomen & pelvis. Started on IV pantoprazole. GI consulted. EGD 01/09 demonstrated severe esophagitis and suspected candidiasis. Path: reactive gastropathy: negative for intestinal metaplasia, dysplasia, malignancy, H pylori HIV ordered with patient's verbal consent and was negative. Started on fluconazole. Not tolerating full liquids. Persistent dysphagia. Seen for f/u by GI- barium swallow and repeat EGD recommended. Continue liquid diet; advance as tolerated. Continue pantoprazole and fluconazole. (2) Dysphagia: Probably due to esophagitis. Advance diet as tolerate. (3) Hypokalemia: K as low as 3.2. Receiving IV replacement. K today = 3.4. Follow. (4) Bradycardia: Marked sinus bradycardia noted on telemetry with heart rates as low as 30's and 40's. One episode of severe bradycardia noted while sleeping and snoring. Check nocturnal pulse oximetry to screen for sleep apnea. Check TSH. (5) DVT prophylaxis: SCD's ordered. (6) Discharge planning issues: Anticipated return to [facility] under care of their medical team. Admission and Anticipated Discharge Date Admission Date: January 09, 2020 Subjective Recheck for GI symptoms. Patient seen in their room around 1410. Ongoing problems with dysphagia to liquids. No abdominal pain. Passing flatus and a small amount of stool. Intermittent cough. No fever. Sinus bradycardia noted on tar heat exchanger cleaner, sometimes as low as 30's. Physical Exam Constitutional: no acute distress Eyes: + anicteric sclerae Respiratory: no respiratory distress Auscultation: lungs clear to auscultation bilaterally Cardiovascular: Rate/Rhythm: regular rate and regular rhythm Vessels: no JVD Extremities: no calf tenderness and no edema Gastrointestinal (Abdomen): normal bowel sounds, soft, nontender, no hepatosplenomegaly Skin: no rashes, warm and dry Psychiatric: Orientation: alert and oriented x 3 Results & Data Results & Data ([facility]) Vital Signs (Past 12 Hours) Vital Signs Temp Pulse Pulse Pulse Resp BP Pulse Ox 01/15/20 23:20 36.8 C 48 L 18 132/77 97 01/15/20 21:25 51 L 01/15/20 20:33 54 L 01/15/20 19:44 37.3 C 58 L 18 120/75 97 01/15/20 15:08 37.1 C 57 L 18 131/86 98 01/15/20 14:20 54 L Pulse Ox 01/15/20 23:20 01/15/20 21:25 98 01/15/20 20:33 01/15/20 19:44 01/15/20 15:08 01/15/20 14:20 Laboratory Results 01/14/20 09:58 01/14/20 09:58 (1) Abdominal pain Abdominal location: generalized Qualified Code(s): R10.84 - Generalized abdominal pain (2) Dysphagia Dysphagia type: unspecified Qualified Code(s): R13.10 - Dysphagia, unspecified
[2020-01-16] MEDS: MoRPHine SULFATE 2 MG/ML CARP IV PRN ×3 (02:23→17:42)
[2020-01-16] MEDS: D5W AND 1/2NSS + 20MEQ KCL 20 MEQ/1,000 ML BAG IV SCH ×3 (03:59→19:40)
[2020-01-16] MEDS: CLOTRIMAZOLE 10 MG TROCHE BUCCAL SCH ×5 (06:53→22:35)
[2020-01-16 09:14] LABS: BUN Creatinine Ratio 6.6 (10-20); Calcium 9.1 mg/dl (8.5-10.1); Creatinine Clr Calc Pharmacy 130.2 ml/min; Est GFR (African American) 126.7; Est GFR (Non-African American) 109.3
[2020-01-16 09:21] LABS: Thyroid Stimulating Hormone 1.18 uIu/ml (0.300-4.500)
[2020-01-16] MEDS: PANTOprazole 40 MG in SYRINGE 0 ML IV SCH ×2 (09:36→21:14)
[2020-01-16] MEDS: FLUCONAZOLE 200 MG/100 ML BAG IV SCH ×2 (09:36→21:14)
--- NOTE | 2020-01-16 09:50 | Gastroenterology Progress Note ---
Date of Service January 16, 2020 Assessment & Plan (1) Dysphagia: (2) Abdominal pain: 39 year old male with dysphagia, self report of hematemesis S/P repeat EGD last week which was concerning for esophageal yeast - does not appear esophageal biopsies were obtained EGD today. Further recommendations to follow. Admission and Anticipated Discharge Date Admission Date: January 09, 2020 Supervising Physician Co-Signing Physician Notes I saw and evaluated the patient. We are planning to do a repeat upper endoscopy today with esophageal dilation given the persistent solid food dysphagia. I did review his upper GI series which seems to not show any evidence of esophageal dysmotility nor evidence of achalasia. Recommendations Upper endoscopy with dilation today Subjective Pt with c/o dysphagia, report of hematemesis prior to arrival. Hb stable at 16.4 today. BUN normal at 5. No gross bleeding documented since arrival at [facility]. EGD last week with endoscopic appearance of candidiasis. Pt receiving clotrimazole po and fluconazole IV w/o improvements. Barium swallow yesterday w/o abnormalities though pt refused barium table. Today, pt NPO for repeat EGD. Awake, alert, no events over night. Review of Systems Review of Systems: ROS: Gen: Denies weakness, fevers, weight loss Eyes: No eye redness, or pain, no recent vision changes Resp: mild, intermittent cough Cardio: No palpitations/irregular beats, no chest pain GI: Reports solids and liquids dysphagia. Denies any abdominal pain. : Denies pain on urination Skin: No jaundice, itching or new rashes Physical Exam Constitutional: WD/WN, vitals as above Eyes: PERRL, conjunctivae normal, anicteric sclerae ENMT: external ear and nose normal, oropharynx normal Neck: trachea midline, no thyromegaly Respiratory: normal respiratory effort, lungs clear to auscultation Cardiovascular: RRR, no murmur, no edema Gastrointestinal (Abdomen): normal bowel sounds, soft, nontender, no hepatosplenomegaly Skin: no rashes, warm and dry multiple tattoos Neurologic: PERRL, EOMI, accommodation nl, no face palsy, no dysarthria Psychiatric: A+Ox3, euthymic affect Lymphatic: no cervical or axillary lymphadenopathy Results & Data ([facility]) Vital Signs (Past 12 Hours) Vital Signs Temp Pulse Pulse Pulse Resp BP Pulse Ox 01/16/20 07:45 36.5 C 63 18 124/82 97 01/16/20 00:48 51 L 01/15/20 23:20 36.8 C 48 L 18 132/77 97 01/15/20 23:13 46 L Pulse Ox 01/16/20 07:45 01/16/20 00:48 01/15/20 23:20 01/15/20 23:13 97 Laboratory Results WBC 9, Hb 16.6, Hct 45.6, Platelets 252, Na 143, K 3.4, BUN 5, Cr 0.88, glucose 105. Diagnostic Findings CT abd/pelvis with IV contrast 01/09/20: 1. No acute process within the abdomen or pelvis. No bowel obstruction. Normal appendix. 2. Fatty infiltration of the liver. CXR 01/09/20: No acute process. Barium Swallow 01/15/20: Technically compromised exam but unremarkable barium swallow. No esophageal stricture or esophageal dilatation. (1) Dysphagia Dysphagia type: unspecified Qualified Code(s): R13.10 - Dysphagia, unspecified (2) Abdominal pain Abdominal location: generalized Qualified Code(s): R10.84 - Generalized abdominal pain
--- NOTE | 2020-01-16 10:40 | Anesthesiology Consultation ---
Date of Service January 16, 2020 Assessment & Plan Chart Review Chart Review: Acceptable Risk for Surgery Consults Requested none ASA ASA2 Proposed Anesthesia Anesthesia Type: MAC Risk / Benefits Reviewed With: PT / POA / Parent / Guardian, Accepts Plan and Informed Consent Obtained History Surgery Operation Date: 01/10/20 17:00 Proposed Procedures p Esophagogastroduodenoscopy Dr. Winter Max MD Operation Date: 01/16/20 17:25 Proposed Procedures p Esophagogastroduodenoscopy Dr Krystian Boland DO Height/Weight Height: 5 ft 9 in Weight: 90.5 kg Allergies Allergy/AdvReac Type Severity Reaction Status Date / Time Penicillins Allergy Unknown unknown Verified 01/09/20 20:49 BEE STINGS Allergy Unknown pt Uncoded 01/09/20 20:49 Medications Home Medications Medication Instructions Recorded Confirmed Last Taken No Known Home Medications 01/09/20 01/09/20 Unknown Active Medications Generic Name Dose Route Start Last Admin Trade Name Freq PRN Reason Stop Dose Admin Clotrimazole 10 mg 01/13/20 19:00 01/16/20 06:53 Clotrimazole 10 Mg Brayden BUCCAL 01/23/20 18:59 Not Given [id number] ALISSON Guaifenesin 100 mg 01/13/20 21:51 01/14/20 22:38 Guaifenesin Sugar Free 100 Mg/5 Ml Udc PO 02/12/20 21:50 100 mg Q6H PRN Administration Cough Potassium Chloride/Dextrose/Sod Cl 20 meq in 1,000 mls @ 125 mls/hr 01/09/20 23:59 01/16/20 03:59 D5w And 1/2nss + 20meq Kcl IV 02/08/20 23:58 125 mls/hr .Q8H ALISSON Administration Pantoprazole Sodium 40 mg/ 10 mls @ 5 mls/min 01/10/20 09:00 01/16/20 09:36 Syringe IV 02/09/20 08:59 5 mls/min BID ALISSON Administration Fluconazole 200 mg in 100 mls @ 100 mls/hr 01/10/20 21:00 01/16/20 09:36 Diflucan IV 01/20/20 20:59 100 mls/hr BID ALISSON Administration Protocol Phenol 2 sprays 01/13/20 15:16 01/13/20 22:03 Chloraseptic 1.4% Soln 180 Ml Btl MT 02/12/20 15:15 2 sprays Q4H PRN Administration oropharyngeal pain NPO Date Last Intake of Fluids: 01/15/20 Time Last Intake of Fluids: 20:00 Date Last Intake of Solids: 01/02/20 Time Last Intake of Solids: 21:00 Past Medical History Medical History (Updated 01/16/20 @ 03:16 by Enmanuel Caruso MD) Bowel obstruction Exercise / Class Metabolic Activity II 4-5 Yardwork/Stairs/Walk up hill Past Surgical History Surgical History (Updated 01/16/20 @ 10:42 by Dodie Mitchell DO) History of esophagogastroduodenoscopy (EGD) X2 Past Anesthesia History No Hx of Anesthesia Complications and No Family Hx of Anesthesia Complications History of PONV No Hx of PONV and No Hx of Motion Sickness Social History Smoking Status: Former smoker tobacco type: cigarettes Do You Dip or Chew Tobacco: No Hx Alcohol Use: No Hx Substance Use: No Physical Exam Vital Signs Last Vital Signs Temp 36.3 C L 01/16/20 10:34 Pulse 70 01/16/20 10:34 Resp 18 01/16/20 10:34 BP 130/89 01/16/20 10:34 Pulse Ox 96 01/16/20 10:34 accompanied by 2 guards ENMT Mouth: no TMJ abnormality Thyromental Distance: > or= 3.5 Finger Breadths Mallampati Class: II Neck normal visual inspection and trachea midline; neck extension not limited Respiratory normal respiratory effort Auscultation: lungs clear to auscultation bilaterally Cardiovascular Rate/Rhythm: regular rate and regular rhythm Heart Sounds: no murmur Musculoskeletal Spine: normal cervical ROM Extremities: full ROM of extremities Neurologic moves all extremities Psychiatric Orientation: alert and oriented x 3 Testing Laboratory Results 01/14/20 09:58 01/16/20 09:26 PT 12.6 Seconds (9.0-12.0) H 01/09/20 20:16 INR 1.2 (0.9-1.1) H 01/09/20 20:16 APTT 25.3 Seconds (21.0-31.0) 01/09/20 20:16 Blood Type B Negative 01/09/20 19:54 Antibody Screen NEGATIVE 01/09/20 19:54
[2020-01-16] MEDS ORDERED: fentaNYL citrate 100 MCG/2 ML VIAL ONE (10:44)
[2020-01-16] MEDS ORDERED: PROPOFOL IV EMULSION 10 MG/ML 20 ML VIAL IV ONE (11:02)
--- NOTE | 2020-01-16 11:08 | GI REPORT ---
Patient Name: Hira Olivares Procedure Date: 01/16/2020 10:16 AM Date of : 1980 Admit Type: Inpatient Age: 39 Gender: Male Attending MD: Isela Boland DO Procedure: Upper GI endoscopy Providers: Isela Boland DO Referring MD: Winston Smith Md Indications: Dysphagia Medicines: Monitored Anesthesia Care Complications: No immediate complications. Estimated blood loss: Minimal. Estimated Blood Loss: Estimated blood loss was minimal. Procedure: Pre-Anesthesia Assessment: - Prior to the procedure, a History and Physical was performed, and patient medications, allergies and sensitivities were reviewed. The patient's tolerance of previous anesthesia was reviewed. - The risks and benefits of the procedure and the sedation options and risks were discussed with the patient. All questions were answered and informed consent was obtained. - Patient identification and proposed procedure were verified prior to the procedure by the physician, the nurse and the gear straightener. The procedure was verified in the procedure room. - Pre-procedure physical examination revealed no contraindications to sedation. - ASA Grade Assessment: II - A patient with mild systemic disease. - After reviewing the risks and benefits, the patient was deemed in satisfactory condition to undergo the procedure. - The anesthesia plan was to use monitored anesthesia care (MAC). - Immediately prior to administration of medications, the patient was re-assessed for adequacy to receive sedatives. - The heart rate, respiratory rate, oxygen saturations, blood pressure, adequacy of pulmonary ventilation, and response to care were monitored throughout the procedure. - The physical status of the patient was re-assessed after the procedure. After obtaining informed consent, the endoscope was passed under direct vision. Throughout the procedure, the patient's blood pressure, pulse, and oxygen saturations were monitored continuously. The Endoscope was introduced through the mouth, and advanced to the third part of duodenum. The upper GI endoscopy was accomplished with ease. The patient tolerated the procedure well. Findings: LA Grade C (one or more mucosal breaks continuous between tops of 2 or more mucosal folds, less than 75% circumference) esophagitis with no bleeding was found 16 to 20 cm from the incisors. A guidewire was placed and the scope was withdrawn. Dilation was performed with a Savary dilator with mild resistance at 45 Fr. The dilation site was examined following endoscope reinsertion and showed mild mucosal disruption. Biopsies were taken with a cold forceps for histology. The pathology specimen was placed into Bottle B. Estimated blood loss was minimal. The middle third of the esophagus and lower third of the esophagus were normal. Biopsies were taken with a cold forceps for histology. The pathology specimen was placed into Bottle A. Estimated blood loss was minimal. The entire examined stomach was normal. The examined duodenum was normal. Impression: - LA Grade C esophagitis. Dilated to 45 Fr. Biopsied. Given the history of tobacco use this could represent inflammatory changes or even changes related to a squamous cell carcinoma. - Normal middle third of esophagus and lower third of esophagus. Biopsied. - Normal stomach. - Normal examined duodenum. Recommendation: - Observe patient's clinical course following today's procedure with therapeutic intervention. - Continue present medications. - Await pathology results. - Repeat upper endoscopy in 6 weeks for surveillance. Islea Boland D.O. Isela Boland, 01/16/2020 11:07:59 AM This report has been signed electronically. Note Initiated On: 01/16/2020 10:16 AM Number of Addenda: 0 I attest to the content of the Intraoperative Record and orders documented therein, exceptions below {[id number]}
--- NOTE | 2020-01-16 11:15 | Communication Note ---
Date of Service: January 16, 2020 The patient underwent upper endoscopy this morning. We did find an ulcerated area in the proximal esophagus that was roughly 4 cm in length. The patient does have a history of tobacco abuse which includes smoking in addition to chewing tobacco (no prior radiation therapy). Empiric dilation to 45 Green[place]ic was performed. Biopsies from both the ulcerated area and distal esophagus were obtained. Appearance could be suggestive of laboratory changes or given his history of tobacco use even an underlying malignancy such as squamous cell carcinoma. Recommendations Full liquid diet and advance as tolerated Await pathology results Anticipate repeat upper endoscopy for retreatment and surveillance in 6 to 8 weeks Continue use of twice daily proton pump inhibitor in addition to a Carafate slurry 4 times daily
--- NOTE | 2020-01-16 11:16 | Anesthesiology Progress Note ---
Date of Service January 16, 2020 Anesthesia Post Procedure Vital Signs Vital Signs: Temp Pulse Pulse Pulse Resp BP Pulse Ox 01/16/20 11:00 63 16 111/82 99 01/16/20 10:34 36.3 C L 70 18 130/89 96 01/16/20 07:45 36.5 C 63 18 124/82 97 01/16/20 00:48 51 L 01/15/20 23:20 36.8 C 48 L 18 132/77 97 01/15/20 23:13 46 L 01/15/20 21:25 51 L 01/15/20 20:33 54 L 01/15/20 19:44 37.3 C 58 L 18 120/75 97 01/15/20 15:08 37.1 C 57 L 18 131/86 98 01/15/20 14:20 54 L Pulse Ox 01/16/20 11:00 01/16/20 10:34 01/16/20 07:45 01/16/20 00:48 01/15/20 23:20 01/15/20 23:13 97 01/15/20 21:25 98 01/15/20 20:33 01/15/20 19:44 01/15/20 15:08 01/15/20 14:20 Pain Intensity Abdomen: Pain Intensity: 0 Throat: Pain Intensity: 5 Transfer of Care Handoff Completed per policy Notes Mental Status: alert / awake / arousable and participated in evaluation Nausea / Vomiting: adequately controlled Pain: adequately controlled Airway Patency, RR, SpO2: stable & adequate BP & HR: stable & adequate Hydration State: stable & adequate Anesthetic Complications: no major complications apparent
--- NOTE | 2020-01-16 19:40 | Hospitalist Progress Note ---
Date of Service January 16, 2020 Assessment & Plan (1) Abdominal pain: Abdominal pain Patient presented with abdominal pain, nausea, vomiting, dysphagia for about 2 weeks duration Likely due to peptic ulcer disease CT ABD: No acute process within the abdomen or pelvis. No bowel obstruction. Normal appendix. Fatty infiltration of the liver. LFT's, Lipase normal. Continue Protonix Appreciate GI help Esophagitis, suspected candidiasis EGD 01/09 demonstrated severe esophagitis and suspected candidiasis. Path: reactive gastropathy: negative for intestinal metaplasia, dysplasia, malignancy, H pylori HIV screen negative. Continue fluconazole. Advance diet as tolerated (2) Dysphagia: Likely secondary to esophageal ulcer S/P empiric dilatation S/P EGD:LA Grade C esophagitis. Dilated to 45 Fr. Biopsied.Given the history of tobacco use this could represent inflammatory changes or even changes related to a squamous cell carcinoma. Normal middle third of esophagus and lower third of esophagus. Biopsied. Normal stomach. Normal examined duodenum. Video Swallow: Technically compromised exam but unremarkable barium swallow. No esophageal stricture or esophageal dilatation. Pathology:pending Full liquid diet today Await pathology reports Advance diet as tolerated Continue Protonix twice daily Continue Carafate 4 times a day Needs repeat upper endoscopy for treatment and surveillance in 6 to 8 weeks Needs follow-up with GI upon discharge Appreciate GI input May need to be evaluated by ENT if pathology suggestive of malignancy (3) Hypokalemia: Replete electrolytes as needed Monitor (4) Bradycardia: Sinus bradycardia TSH: Normal Currently asymptomatic Monitor on Tele Follow up nocturnal pulse oximetry study May need Event monitor upon discharge (5) DVT prophylaxis: SCDs (6) Discharge planning issues: Anticipated return to [facility] under care of their medical team. Admission and Anticipated Discharge Date Admission Date: January 09, 2020 Subjective Patient is seen and examined at bedside Had EGD earlier today Discussed with gastroenterology today Abdominal pain resolved Reports pain with swallowing Denies chest pain, shortness of breath, dizziness, nausea Offers no other complaints Jail guards at bedside Review of Systems Review of Systems: All systems reviewed & are unremarkable except as noted in HPI & below Physical Exam Physical Exam: Physical Exam: Vitals signs as noted above General Appearance:Moderately built and nourished, no apparent distress Head: normocephalic, Atraumatic Eyes: normal inspection, EOMI Neck: supple, Trachea midline Respiratory/Chest: Normal breath sounds, CTA Cardiovascular: S1, S2, No murmur Abdomen/GI:Soft, Non tender, Bowel sounds present Extremities/Musculoskelatal:normal inspection, no edema Neurologic/Psych:AAOX3, grossly no focal neurological deficits Skin: normal color, warm, + multiple tattoos Results & Data Results & Data ([facility]) Vital Signs (Past 12 Hours) Vital Signs Temp Pulse Pulse Resp BP Pulse Ox 01/16/20 15:51 36.8 C 55 L 17 116/76 97 01/16/20 15:00 55 L 01/16/20 13:20 36.8 C 60 16 114/78 98 01/16/20 12:40 36.8 C 59 L 20 113/80 98 01/16/20 12:23 50 L 01/16/20 12:18 36.7 C 59 L 17 123/83 97 01/16/20 11:58 36.4 C L 54 L 18 119/81 97 01/16/20 11:29 69 18 116/82 96 01/16/20 11:15 81 18 107/80 96 01/16/20 11:00 63 16 111/82 99 01/16/20 10:34 36.3 C L 70 18 130/89 96 01/16/20 07:45 36.5 C 63 18 124/82 97 Laboratory Results BMP 01/16/20 01/16/20 08:26 09:26 Sodium 138 Potassium 3.5 Chloride 114 H Carbon Dioxide 17 L BUN 6 L Creatinine 0.83 Glucose 102 H Calcium 9.1 (1) Abdominal pain Abdominal location: generalized Qualified Code(s): R10.84 - Generalized abdominal pain (2) Dysphagia Dysphagia type: unspecified Qualified Code(s): R13.10 - Dysphagia, unspecified
[2020-01-16] MEDS: SUCRALFATE 1 GM/10 ML UDC PO SCH (21:14)
[2020-01-16] MEDS ORDERED: MELATONIN 3 MG TAB PO PRN (21:53)
[2020-01-17] MEDS: D5W AND 1/2NSS + 20MEQ KCL 20 MEQ/1,000 ML BAG IV SCH ×2 (03:40→12:01)
[2020-01-17] MEDS: MoRPHine SULFATE 2 MG/ML CARP IV PRN (06:29)
[2020-01-17] MEDS: CLOTRIMAZOLE 10 MG TROCHE BUCCAL SCH ×3 (07:00→14:51)
[2020-01-17 08:05] LABS: BUN Creatinine Ratio 4.1 (10-20); Calcium 9.1 mg/dl (8.5-10.1); Creatinine Clr Calc Pharmacy 118.7 ml/min; Est GFR (African American) 120.9; Est GFR (Non-African American) 104.3; Magnesium 2.1 mg/dl (1.8-2.4); Potassium 3.5 mmol/L (3.5-5.1)
[2020-01-17] MEDS: PANTOprazole 40 MG in SYRINGE 0 ML IV SCH (08:59)
[2020-01-17] MEDS: SUCRALFATE 1 GM/10 ML UDC PO SCH ×2 (08:59→12:01)
[2020-01-17] MEDS: FLUCONAZOLE 200 MG/100 ML BAG IV SCH (08:59)
--- NOTE | 2020-01-17 14:27 | Hospitalist Progress Note ---
Date of Service January 17, 2020 Assessment & Plan (1) Abdominal pain: Abdominal pain Patient presented with abdominal pain, nausea, vomiting, dysphagia for about 2 weeks duration Likely due to peptic ulcer disease CT ABD: No acute process within the abdomen or pelvis. No bowel obstruction. Normal appendix. Fatty infiltration of the liver. LFT's, Lipase normal. Continue Protonix Appreciate GI help Abdominal pain resolved Esophagitis, suspected candidiasis EGD 01/09 demonstrated severe esophagitis and suspected candidiasis. Path: reactive gastropathy: negative for intestinal metaplasia, dysplasia, malignancy, H pylori HIV screen negative. Continue fluconazole to complete 2-week course Tolerated low fiber diet (2) Dysphagia: Likely secondary to esophageal ulcer S/P empiric dilatation S/P EGD:LA Grade C esophagitis. Dilated to 45 Fr. Biopsied.Given the history of tobacco use this could represent inflammatory changes or even changes related to a squamous cell carcinoma. Normal middle third of esophagus and lower third of esophagus. Biopsied. Normal stomach. Normal examined duodenum. Video Swallow: Technically compromised exam but unremarkable barium swallow. No esophageal stricture or esophageal dilatation. Pathology:pending Await pathology reports Continue Protonix twice daily Continue Carafate 4 times a day Needs repeat upper endoscopy for treatment and surveillance in 6 to 8 weeks Needs follow-up with GI upon discharge Appreciate GI input May need to be evaluated by ENT if pathology suggestive of malignancy Tolerated low-fat diet (3) Hypokalemia: Replete electrolytes as needed Monitor (4) Bradycardia: Sinus bradycardia TSH: Normal Currently asymptomatic Monitor on Tele Nocturnal pulse oximetry study--uneventful May need Event monitor upon discharge (5) DVT prophylaxis: SCDs (6) Discharge planning issues: Anticipated return to [facility] under care of their medical team. Admission and Anticipated Discharge Date Admission Date: January 09, 2020 Subjective Patient is seen and examined at bedside No nausea, vomiting, abdominal pain today Tolerated low fiber diet No new complaints Denies chest pain, shortness of breath, dizziness Long Term guards at bedside Plan to discharge back to correctional facility today Review of Systems Review of Systems: All systems reviewed & are unremarkable except as noted in HPI & below Physical Exam Physical Exam: Physical Exam: Vitals signs as noted above General Appearance:Moderately built and nourished, no apparent distress Head: normocephalic, Atraumatic Eyes: normal inspection, EOMI Neck: supple, Trachea midline Respiratory/Chest: Normal breath sounds, CTA Cardiovascular: S1, S2, No murmur Abdomen/GI:Soft, Non tender, Bowel sounds present Extremities/Musculoskelatal:normal inspection, no edema Neurologic/Psych:AAOX3, grossly no focal neurological deficits Skin: normal color, warm, + multiple tattoos Results & Data Results & Data ([facility]) Vital Signs (Past 12 Hours) Vital Signs Temp Pulse Pulse Resp BP Pulse Ox 01/17/20 07:12 55 L 01/17/20 06:45 36.7 C 55 L 18 126/73 97 Laboratory Results [facility] 01/17/20 07:12 Sodium 142 Potassium 3.5 Chloride 113 H Carbon Dioxide 24 BUN 4 L Creatinine 0.91 Glucose 110 H Calcium 9.1 (1) Abdominal pain Abdominal location: generalized Qualified Code(s): R10.84 - Generalized abdominal pain (2) Dysphagia Dysphagia type: unspecified Qualified Code(s): R13.10 - Dysphagia, unspecified
--- NOTE | 2020-01-17 14:46 | Discharge Summary ---
Date of Service January 17, 2020 Admission HPI Per Admitting Provider CHIEF COMPLAINT: Questionable hematemesis and dysphagia. HISTORY OF PRESENT ILLNESS: This is a 39-year-old male with past medical history significant for tobacco use disorder, who comes with hematemesis and dysphagia. The patient is admitted to care home since 12/31/2019. He says symptoms started around 12/31/2019 or 01/01/2020. He is saying he is not able to eat anything. Whatever he puts in his mouth is coming out, he could not even drink water, he is throwing up, and he says he also had a couple of days of hematemesis on 01/03/2020 and 01/04/2020 and he was taken to the hospital, looks like [facility] where the patient had a bowel obstruction and was s/p scope. The patient says they are waiting for the biopsies. Patient says he was forced to sign out AMA today. Seems he was also [facility] as per the ER and was brought in here for similar symptoms. The patient says he is still the same, that he could not eat anything and has abdominal pain in the epigastric region. He says his throat is sore because of the tubes. No loss of sense of smell or taste. Denies any fever, chills. No headache, no blurred vision, no earache, no runny nose. He has cough since 12/30/2019 or 12/31/2019, bringing up some whitish phlegm. No shortness of breath, no chest pain. He is urinating when he gets fluids and he had a some small amount of diarrhea in the ER today and says stools are black. No swelling in the legs, no rash. Admission Exam Per Admitting Provider PHYSICAL EXAMINATION: GENERAL: The patient is of moderate built, not in acute distress. VITAL SIGNS: Temperature 37.3, pulse 46, respiratory rate 19, blood pressure 136/72, oxygen 97% on room air. HEENT: Head atraumatic. Pupils are equal, round, and reactive to light. Oral mucosa moist. NECK: No JVD, no neck masses seen. CARDIOVASCULAR: S1, S2 heard, regular rate and rhythm, no murmur, no gallop. RESPIRATORY SYSTEM: Normal AP diameter. No accessory muscle use. No wheezing, no crackles. ABDOMEN: Soft, bowel sounds present. Mild epigastric tenderness present, no guarding, no rigidity. No distention. CENTRAL NERVOUS SYSTEM: Cranial nerves II-XII grossly intact, nonfocal. EXTREMITIES: No edema, no erythema. Principal Diagnosis Esophagitis, suspected candidiasis Esophageal Ulcer Dysphagia Sinus bradycardia Hypokalemia Discharge Data Allergies Allergy/AdvReac Type Severity Reaction Status Date / Time Penicillins Allergy Unknown unknown Verified 01/09/20 20:49 BEE STINGS Allergy Unknown pt Uncoded 01/09/20 20:49 Consultations 01/09/20 23:04 ED Decision to Admit Stat 01/09/20 23:59 Consult Case Management - Discharge Planning Routine 01/10/20 07:06 Consult Health Information Management Routine 01/10/20 08:00 Consult Gastroenterology Routine Procedures Performed Operation Date: 01/10/20 17:00 Actual Procedures p EGD Biopsy Cytology - Naz Max MD Operation Date: 01/16/20 17:25 Actual Procedures p EGD Biopsy Dilatation - Isela Boland DO CT ABD: Lung bases are unremarkable. No pneumatosis, free air or portal venous gas is present. There is probable fatty infiltration of the liver or there is a possible small hiatal hernia. The spleen, adrenal glands, kidneys and pancreas are normal. There is no biliary or pancreatic ductal dilatation. No hydronephrosis. No ureteral calculi are present. There is no evidence for a bowel obstruction. There is no lymphadenopathy. Major vasculature is patent. No biliary or pancreatic ductal dilatation is noted. There is no peripancreatic or pericholecystic infiltration. The appendix is normal. Barium Swallow: Technically compromised exam but unremarkable barium swallow. No esophageal stricture or esophageal dilatation. EGD: Impression: - Moderately severe candidiasis esophagitis throughout the entire esophagitis.. - Erythematous mucosa in the antrum. Biopsied. - Normal stomach. - Normal duodenal bulb and second portion of the duodenum. Biopsied. Recommendation: - Await pathology results. - Return to the floor when ready.- - Treat for esophageal candidiasis with Diflucan. - Also treat with IV PPI, transition to oral BID ppi for next 6-8 weeks. Repeat EGD: Findings: LA Grade C (one or more mucosal breaks continuous between tops of 2 or more mucosal folds, less than 75% circumference) esophagitis with no bleeding was found 16 to 20 cm from the incisors. A guidewire was placed and the scope was withdrawn. Dilation was performed with a Savary dilator with mild resistance at 45 Fr. The dilation site was examined following endoscope reinsertion and showed mild mucosal disruption. Biopsies were taken with a cold forceps for histology. The pathology specimen was placed into Bottle B. Estimated blood loss was minimal. The middle third of the esophagus and lower third of the esophagus were normal. Biopsies were taken with a cold forceps for histology. The pathology specimen was placed into Bottle A. Estimated blood loss was minimal. The entire examined stomach was normal. The examined duodenum was normal. Impression: - LA Grade C esophagitis. Dilated to 45 Fr. Biopsied. Given the history of tobacco use this could represent inflammatory changes or even changes related to a squamous cell carcinoma. - Normal middle third of esophagus and lower third of esophagus. Biopsied. - Normal stomach. - Normal examined duodenum. Recommendation: - Observe patient's clinical course following today's procedure with therapeutic intervention. - Continue present medications. - Await pathology results. - Repeat upper endoscopy in 6 weeks for surveillance. Ordered Studies 01/09/20 19:39 CT abd pelvis IV con only Urgent 01/15/20 09:20 FL barium swallow Routine Hospital Course (1) Abdominal pain: Abdominal pain Patient presented with abdominal pain, nausea, vomiting, dysphagia for about 2 weeks duration Likely due to peptic ulcer disease CT ABD: No acute process within the abdomen or pelvis. No bowel obstruction. Normal appendix. Fatty infiltration of the liver. LFT's, Lipase normal. Continue Protonix Appreciate GI help Abdominal pain resolved Esophagitis, suspected candidiasis EGD 01/09 demonstrated severe esophagitis and suspected candidiasis. Path: reactive gastropathy: negative for intestinal metaplasia, dysplasia, malignancy, H pylori HIV screen negative. Continue fluconazole to complete 2-week course Tolerated low fiber diet (2) Dysphagia: Likely secondary to esophageal ulcer S/P empiric dilatation S/P EGD:LA Grade C esophagitis. Dilated to 45 Fr. Biopsied.Given the history of tobacco use this could represent inflammatory changes or even changes related to a squamous cell carcinoma. Normal middle third of esophagus and lower third of esophagus. Biopsied. Normal stomach. Normal examined duodenum. Video Swallow: Technically compromised exam but unremarkable barium swallow. No esophageal stricture or esophageal dilatation. Pathology:pending Await pathology reports Continue Protonix twice daily Continue Carafate 4 times a day Needs repeat upper endoscopy for treatment and surveillance in 6 to 8 weeks Needs follow-up with GI upon discharge Appreciate GI input May need to be evaluated by ENT if pathology suggestive of malignancy Tolerated low-fat diet (3) Hypokalemia: Replete electrolytes as needed Monitor (4) Bradycardia: Sinus bradycardia TSH: Normal Currently asymptomatic Monitor on Tele Nocturnal pulse oximetry study--uneventful May need Event monitor upon discharge (5) DVT prophylaxis: SCDs (6) Discharge planning issues: Anticipated return to [facility] under care of their medical team. Total Time Total Time Spent Total Time Spent (In Minutes): 42 minutes Total Time Includes: Examination of the Patient, Discharge Planning, Medication Reconciliation, Communication With Other Providers and Other Discharge Plan Discharge Items [facility] Reason For Visit: GI BLEED, DYSPHAGIA Discharge Diagnosis: Esophagitis, suspected candidiasis Esophageal Ulcer Dysphagia Sinus bradycardia Hypokalemia Activity: Per Instructions section Exercise/Sports: Gradually increase as tolerated Non-emergency contact: Primary Care Provider and Senior Librarian Call non-emergency contact if: you have any medication questions, your symptoms worsen, your pain is not controlled, your pain is worsening, your pain is unusual for you, your pain is concerning for you and you have a fever Follow-up/Referrals: [facility] [Primary Care Provider] - Diet: Low Fiber and Other - See Diet Comment Diet Comment: Soft/Hickory diet - see attached handout for details Addtl Attending Provider Instructions: Follow-[facility] with [facility] care [facility] upon discharge Follow-up with your supervisor in circuit testing Dr. Boland for repeat upper endoscopy in 6 to 8 weeks Your pathology reports are pending at the time of discharge. Follow-up with your physician for results. If pathology suggestive of squamous cell carcinoma, you will likely require evaluation by ENT surgeon for further management. Your heart rate is noted to be slow during your hospital stay. Consider further evaluation by your edi analyst as needed. Medications Continue fluconazole for suspected esophageal candidiasis to complete the course Continue Carafate 4 times a day for 6 weeks Continue taking Protonix 40 mg twice a day for 6 weeks and then daily Seek immediate medical attention if your symptoms reoccur or worsen Pending Studies at Discharge: Yes Studies:: Pathology Stand-Alone Forms: My [facility] Skilled Items Patient informed of condition?: Yes Discharge Level of Care: Other Communicable Disease: No Discharge Prognosis: Stable Lines: None Urinary Catheter: No Medications and DC Order Prescriptions: New fluconazole 200 mg tablet 200 mg PO DAILY Qty: 7 RF: 0 sucralfate [Carafate] 1 gram tablet 1 g PO ACHS 42 Days Qty: 42 RF: 0 pantoprazole [Protonix] 40 mg tablet,delayed release (DR/EC) 40 mg PO BID Qty: 60 RF: 1 No Action No Known Home Medications RF: 0 Discharge Orders: Discharge Order (Routine); Ordered 01/17/20 Ordered By: Winston Siu/Other Patient Handouts: Discharge Instructions- Eating a ... Admission Data Admit Date/Time: 01/09/20 23:08 Attending Provider: Winston Smith Admit Provider: Butch Randolph Primary Care Provider: [facility] Other Providers: Butch Randolph ; Pineda Maldonado Other Interventions: Discharge Summary Assessment (RN) Last Done: 01/17/20 14:54
== END 2020-01-17 15:20 | DRG 368 ==
LOC: ED 18:23 → 2N 23:08 → SUATTDRO 23:08 → 2N 23:39 → 2W 01-16 02:27